=== PATIENT | female | born 1965 | race Caucasian/White ===

== ENCOUNTER 2023-07-03 06:37 | Outpatient (OUT) | payer BC, SELFPAY ==
[2023-07-03 07:27] LABS: Basophils Percent Auto 0.6 % (0.2-2.0); Eosinophils Absolute Auto 0.2 10^3/uL (0.0-0.7); Eosinophils Percent Auto 2.7 % (0.9-7.0); Hematocrit 38.5 % (36.0-48.0); Hemoglobin 12.2 g/dL (12.0-16.0); Immature Granulocytes Abs Auto 0.02 10^3/uL (0.00-0.03); Immature Granulocytes Pct Auto 0.3 % (0.0-0.5); Lymphocytes Absolute Auto 2.2 10^3/uL (1.2-3.8); Lymphocytes Percent Auto 30.6 % (20.5-60.0); Mean Corpuscular HGB Conc 31.7 g/dL (29.9-35.2); Mean Corpuscular Hemoglobin 29.3 pg (26.7-34.0); Mean Corpuscular Volume 92.5 fL (81.0-99.0); Monocytes Absolute Auto 0.8 10^3/uL (0.3-0.8); Monocytes Percent Auto 11.1 % (1.7-12.0); Neutrophils Absolute Auto 3.9 10^3/uL (1.4-6.5); Neutrophils Percent Auto 54.7 % (43.0-75.0); Platelet Count 338 10^3/uL (150-450); Red Blood Count 4.16 10^6/uL (4.20-5.40); Red Cell Distribution Width 14.6 % (11.0-15.0); White Blood Count 7.1 10^3/uL (4.0-11.0)
[2023-07-03 07:38] LABS: Estimated Average Glucose 117 mg/dL; Glycohemoglobin A1C 5.7 % (4.5-6.2)
[2023-07-03 11:40] LABS: Anion Gap 14.5; BUN Creatinine Ratio 25.7; Calcium 8.9 mg/dL (8.5-10.1); Carbon Dioxide 26.6 mmol/L (21.0-32.0); Chloride 103 mmol/L (98-107); Estimated GFR (African America >60 (>=60); Estimated GFR (Non-African Ame >60 (>=60); Glucose 91 mg/dL (74-106); Potassium 4.1 mmol/L (3.5-5.1); Sodium 140 mmol/L (136-145)
[2023-07-03 11:41] LABS: Aspartate Amino Transferase 18 U/L (15-37); Bilirubin Total 0.3 mg/dL (0.2-1.0)
[2023-07-03 11:42] LABS: Alanine Aminotransferase 27 U/L (14-59); Albumin Globulin Ratio 1.1; Albumin Level 3.8 g/dL (3.4-5.0); Alkaline Phosphatase 66 U/L (46-116); Chol HDL Ratio 2.8; Cholesterol 175 mg/dL (<=200); Globulin 3.4 g/dL; HDL Cholesterol 62 mg/dL (40-60); Total Protein 7.2 g/dL (6.4-8.2); Triglycerides 102 mg/dL (<=150); VLDL CHOLESTEROL 20.4 mg/dL
[2023-07-03 11:43] LABS: Thyroid Stimulating Hormone 0.202 uIU/mL (0.358-3.740)
[2023-07-03 15:52] LABS: Free T4 1.09 ng/dL (0.76-1.46)
[2023-07-04 04:07] LABS: Thyroid Peroxidase (TPO) Ab 9 IU/mL (0-34)
[2023-07-05 16:09] LABS: Thyroglobulin Antibody <1.0 IU/mL (0.0-0.9)
== END 2023-07-03 06:38 | disposition home or self-care (01) ==
LOC: LAB 06:46
PROVIDERS: PCP Family Medicine; Visit Provider Family Medicine
DX: Z00.00 Encounter for general adult medical examination without abnormal findings (principal); E03.9 Hypothyroidism, unspecified
CPT/HCPCS: 36415; 80053; 80061; 83036; 84439; 84443; 85025; 86376; 86800

== ENCOUNTER 2023-11-12 07:55 | Outpatient (OUT) | payer BC, SELFPAY ==
--- NOTE | 2023-11-12 07:58 | US_ITS ---
[address] [address] Patient Name: DANA MCGARRY MRN: [id number] date: 1965 Sex: F Assigned Patient Location: US Current Patient Location: US Accession/Order Number: [id number] Exam Date: 11/12/2023 08:00 Report Date: 11/12/2023 09:05 At the request of: NANDINI CASTILLO Procedure: US thyroid EXAMINATION: US thyroid HISTORY: multinodular goiter E04.2 COMPARISON: 11/16/2022 TECHNIQUE: Sonographic images of the thyroid gland were obtained. FINDINGS: The right thyroid lobe measures 4.0 x 1.9 x 1.7 cm. Diffuse increase echotexture with scattered nodules The thyroid isthmus measures 2.4 mm. No focal nodule The left thyroid lobe measures 4.1 x 1.5 x 1.3 cm. Heterogeneous echotexture with scattered nodules 2 focal nodules over 1 cm: Nodule 1: Right thyroid lobe. 2.2 x 1.2 x 1.7 cm. Mixed solid and cystic, hypoechoic, wide, smooth margins, no calcifications. TR 3 Nodule 2: Left thyroid lobe. 1.4 x 0.7 x 0.7 cm. Solid, hypoechoic, wide, smooth margins, no calcifications. TR 4 US/US thyroid IMPRESSION: Stable multinodular thyroid gland TI-RADS: The [employer] TI-RADS committee's white paper recommendations for thyroid lesions classified as TR4 (moderately suspicious) are listed below: > 1.0 cm. Follow-up ultrasound in 1, 2, 3, and 5 years. > 1.5 cm. FNA. J. Am Maeve Radiol 2017;14:[id number]. Electronically authenticated by: ELDON MUKHERJEE Date: 11/12/2023 09:05
== END 2023-11-12 07:56 | disposition home or self-care (01) ==
LOC: US 07:55
PROVIDERS: PCP Family Medicine; Visit Provider Otolaryngology
DX: E04.2 Nontoxic multinodular goiter (principal)
CPT/HCPCS: 76536

== ENCOUNTER 2024-09-10 15:53 | Emergency (ER) | payer BC, SELFPAY ==
[2024-09-10 16:00] VITALS: BP 121/74; PULSE 65; TEMP 36.5; O2SAT 97; BMI 23.9
--- NOTE | 2024-09-10 16:07 | XR_ITS ---
The [address] [address] Patient Name: DANA MCGARRY MRN: [id number] date: 1965 Sex: F Assigned Patient Location: ER Current Patient Location: ED.MAIN Accession/Order Number: [id number] Exam Date: 09/10/2024 16:15 Report Date: 09/10/2024 16:59 At the request of: GABRIELA LEAL Procedure: XR ankle LT min 3V EXAM: XR ankle LT min 3V HISTORY: left ankle sprain COMPARISON: None. TECHNIQUE: 3 views of the left ankle were obtained. FINDINGS: A small fracture fragment is seen at the tip of the lateral malleolus. This may arise from the lateral aspect of the talus and the has the appearance of the old injury. No acute fracture or dislocation is identified. The joint spaces and mortise are intact. No osteochondral injury is identified. Soft tissue swelling laterally is noted. XR/XR ankle LT min 3V IMPRESSION: The small fracture fragment between the tip of the lateral malleolus and the lateral talus appears remote in nature. There is no clear evidence of an acute fracture or dislocation. The joint spaces are intact. Soft tissue swelling laterally is noted. Direct comparison with a previous study may be helpful in determining the chronicity of these findings. Electronically authenticated by: KIRBY WEST Date: 09/10/2024 16:59
--- NOTE | 2024-09-10 16:08 | ED_ITS ---
HPI HPI - Extremity Injury (Lower) General Chief Complaint: Extremity Injury, Lower Stated Complaint: LOWER EXTREMITY PAIN, ANKLE Time Seen by Provider: 09/10/24 15:55 Source: patient Mode of arrival: walk-in Limitations: no limitations History of Present Illness HPI Narrative: Patient is a 59-year-old female presents to the emergency department for evaluation of a left ankle injury that occurred approximately 5 hours ago. She took a step out of the tub and inverted her left ankle. She complains of pain over the left medial malleolus. She denies any other associated injuries. She reports significant pain with ambulating but is able to bear weight. No medications prior to arrival. She states she had a growth plate fracture when she was in high school that was realigned during surgery, no hardware in the ankle. Related Data Home Medications ?Medication ?Instructions ?Recorded ?Confirmed amlodipine 5 mg tablet mg 09/10/24 carvedilol 25 mg tablet 25 mg PO Q12H 09/10/24 09/10/24 diclofenac sodium 75 mg mg PO 09/10/24 tablet,delayed release rosuvastatin 20 mg tablet (Crestor) 20 mg PO DAILY 09/10/24 09/10/24 spironolactone 25 mg tablet mg 09/10/24 trazodone 50 mg tablet mg 09/10/24 valsartan 160 mg tablet mg 09/10/24 Previous Rx's ?Medication ?Instructions ?Recorded hydrocodone 5 mg-acetaminophen 325 1 tab PO Q6H PRN pain 3 days #12 09/10/24 mg tablet tabs Allergies Allergy/AdvReac Type Severity Reaction Status Date / Time No Known Drug Allergies Allergy Verified 09/10/24 16:00 Opioid HPI Opioid Management Most Recent Pain and Opioid Data: Last Pain Scale 6 09/10/24 16:52 09/10/24 Last JAN Pain Assessment 09/10/24 16:52 Review of Systems ROS Constitutional Denies: fever or chills Ears, nose, mouth, and throat Denies: throat pain or nasal congestion Respiratory Denies: shortness of breath Gastrointestinal Denies: nausea or vomiting Musculoskeletal Denies: back pain Integumentary/Breast Denies: rash Neurological Denies: numbness in extremities or weakness in extremities Hematologic/Lymphatic Denies: easy bruising or easy bleeding PFSH PFSH Social History Little interest or pleasure in doing things: not at all Feeling down, depressed, or hopeless: not at all Exam Narrative Exam Narrative: Gen.: Awake, alert, in no distress Head: Normocephalic, atraumatic ENT: Moist mucous membranes Respiratory: No respiratory distress Extremities: Moves extremities equally, tenderness and swelling of the left lateral malleolus. Diffusely tender to palpation. Normal flexion extension of the toes of the left foot. No bony tenderness of the left fifth metatarsal or midfoot. 2+ left DP pulse. Minimal tenderness of the left medial malleolus, no anterior tibial tenderness Psych: Normal mood and affect Neuro: No focal neuro deficit Skin: Warm, dry, intact Constitutional Vital Signs, click to edit/add: Last Vital Signs Temp 97.7 F 09/10/24 16:00 Pulse 65 09/10/24 16:00 Resp 18 09/10/24 16:00 BP 121/74 09/10/24 16:00 Pulse Ox 97 09/10/24 16:00 O2 Del Method Room Air 09/10/24 16:00 Course Vital Signs Vital signs: Vital Signs Temperature 97.7 F 09/10/24 16:00 Pulse Rate 65 09/10/24 16:00 Respiratory Rate 18 09/10/24 16:00 Blood Pressure 121/74 09/10/24 16:00 Pulse Oximetry 97 09/10/24 16:00 Oxygen Delivery Method Room Air 09/10/24 16:00 Temperature 97.7 F 09/10/24 16:00 Pulse Rate 65 09/10/24 16:00 Respiratory Rate 18 09/10/24 16:00 Blood Pressure 121/74 09/10/24 16:00 Pulse Oximetry 97 09/10/24 16:00 Oxygen Delivery Method Room Air 09/10/24 16:00 MDM - Extremity Injury (Lower) MDM Narrative Medical decision making narrative: X-rays of the left ankle with no acute fracture or dislocation. Patient was found to have an old, remote appearing avulsion fracture off the left lateral malleolus. She is placed in an Axel wrap, Aircast and given crutches for comfort. She remains neurovascularly intact. Rest, ice, elevate. Short course of analgesics given for home. Work note provided. Return to the ER if symptoms change or worsen SUPERVISED APC VISIT, PHYSICIAN ATTESTATION: Based on the medical record the care appears appropriate. ? Medical Records Attestation: I reviewed the patient's medical records. Imaging Data XR ankle: Attestation: I have reviewed the pertinent imaging results. Radiologist's impression: ITS Impressions Ankle X-Ray 09/10/24 16:07 IMPRESSION: The small fracture fragment between the tip of the lateral malleolus and the lateral talus appears remote in nature. There is no clear evidence of an acute fracture or dislocation. The joint spaces are intact. Soft tissue swelling laterally is noted. Direct comparison with a previous study may be helpful in determining the chronicity of these findings. Electronically authenticated by: KIRBY WEST Date: 09/10/2024 16:59 Discharge Plan Discharge Chief Complaint: Extremity Injury, Lower Clinical Impression: Left ankle sprain Patient Disposition: Home, Self-Care Time of Disposition Decision: 17:15 Condition: Good Prescriptions / Home Meds: New hydrocodone-acetaminophen 5-325 mg tablet 1 tab PO Q6H PRN (Reason: pain) 3 Days Qty: 12 0RF Rx Instructions: DX: M25.572 No Action carvedilol 25 mg tablet 25 mg PO Q12H Rx Instructions: must administer with a meal/food rosuvastatin [Crestor] 20 mg tablet 20 mg PO DAILY trazodone 50 mg tablet amlodipine 5 mg tablet spironolactone 25 mg tablet diclofenac sodium 75 mg tablet,delayed release (DR/EC) PO valsartan 160 mg tablet Print Language: Latvian Instructions: Ankle Sprain (ED) Referrals: Ines García MD [Primary Care Provider] - 1 week
--- OUTSIDE RECORDS SUMMARY | 2024-09-10 16:13 | XMS_ITS | CCD ---
Author Organization [facility] Care Team Providers Care Senior Software Manager Name Role Phone AWILDA, DR JORDAN Colbert Consulting Unavaila ble DEBENEDETTI, DR JORDAN Colbert Admitting Unavaila ble DEBENEDETTI, DR JORDAN Colbert Attending Unavaila ble REQUEST, NONE LISTED Primary Care Unavaila ble DEBENEDETTI, DR JORDAN Colbert Consulting Unavaila ble DEBENEDETTI, DR JORDAN Colbert Admitting Unavaila ble DEBENEDETTI, DR JORDAN Colbert Attending Unavaila ble REQUEST, NONE LISTED Primary Care Unavaila ble REQUEST, NONE LISTED Primary Care Unavaila ble TIMMIS, NANDINI Admitting Unavailable TIMMIS, NANDINI Attending Unavailable TIMMIS, NANDINI Consulting Unavailable ZiebMike burton Consulting Unavailable DEBENEDETTI, DR JORDAN Colbert Consulting Unavaila ble REQUEST, NONE LISTED Primary Care Unavaila ble DEBENEDETTI, DR JORDAN Colbert Attending Unavaila ble DEBENEDETTI, DR JORDAN Colbert Admitting Unavaila ble REQUEST, NONE LISTED Primary Care Unavaila ble TIMMIS, NANDINI Admitting Unavailable TIMMIS, NANDINI Attending Unavailable TIMMIS, NANDINI Consulting Unavailable Mike Gonzalez Consulting Unavailable Ines Mckeon Unavailable Brooke Cha Unavailable Ines Mckeon MD Primary Care Provider NANDINI CASTILLO Attending Unavailable SHAI HENDRICKS Attending Unavailable SHAI HENDRICKS Referring Unavailable INES MCKEON Primary Care Unavailable ELISA MINOR Attending Unavailable INES MCKEON Referring Unavailable INES MCKEON Primary Care Unavailable ELISA MINOR Referring Unavailable INES MCKEON Primary Care Unavailable ELISA MINOR Attending Unavailable ELISA MINOR Referring Unavailable INES MCKEON Primary Care Unavailable ELISA MINOR Attending Unavailable ELISA MINOR Referring Unavailable INES MCKEON Primary Care Unavailable ELISA MINOR Attending Unavailable ELISA MINOR Referring Unavailable INES MCKEON Primary Care Unavailable ROJAS VALENCIA Attending Unavailable INES MCKEON Referring Unavailable INES MCKEON Primary Care Unavailable SHAI HENDRICKS Attending Unavailable INES MCKEON Referring Unavailable INES MCKEON Primary Care Unavailable Allergies Allergy Classification Reported Allergen(s) Allergy Type Date of Onset Reaction(s) Facility (1 source) bee venom Drug allergy (disorder) 1 [facility] (6 sources) NIFEdipine; Translations: [NIFEDIPINE] Drug Allergy 1 [facility] (6 sources) Bee Venom Protein (Honey Bee); Translations: [BEE VENOM PROTEIN (HONEY BEE)] Propensity to adverse reactions to drug 9 [facility] Medications Current Medications Medication Drug Class(es) Dates Sig (Normalized) Sig (Original) acetaminophen 325 mg / HYDROcodone bitartrate 5 mg oral tablet (3 sources) Opioid Agonist Start: 06-27-2023 take 1 tablet by mouth every six hours HYDROcodone-Acet aminophen 5-325 MG 1 tablet as needed Orally every 6 hrs for 7 days Jun, Active amLODIPine 5 mg oral tablet (4 sources) Dihydropyridine Calcium Channel Sapphire Start: 08-05-2024 take 5 mg by mouth once daily Amlodipine Active 5 MG PO Daily August 05, 2024 12:00am Start: 04-01-2024 take 1 tablet by alex th in the morning amLODIPine (NORVASC) 10 mg tablet Take 1 tablet (10 mg total) by mouth in the morning. 90 tablet 3 04/01/2024 Active Start: 12-04-2023 take 1 tablet by alex th in the morning amLODIPine (NORVASC) 5 mg tablet Take 1 tablet (5 mg total) by mouth in the morning. 30 tablet 11 12/04/2023 Active amoxicillin 875 mg / clavulanate 125 mg oral tablet (2 sources) Penicillin-class Antibacterial Start: 06-07-2023 take 1 tablet by mouth every twelve hours Amoxicillin-Pot Clavulanate 875-125 MG 1 tablet Orally every 12 hrs for 10 days May, Active Ascorbic Acid (5 sources) Vitamin C ascorbic acid (VITAMIN C ORAL) Take by mouth daily. Active ascorbic acid (V ITAMIN C ORAL) Take by mouth daily. 0 Active carvedilol 25 mg oral tablet (15 sources) alpha-Adrenergic Sapphire, beta-Adrenergic Sapphire Start: 11-18-2023 take 2 tablets by mouth in the morning, then take 2 tablets by mouth at mealtime carvediloL (COREG) 25 mg tablet Indications: Essential hypertension Take 2 tablets (50 mg total) by mouth in the morning and 2 tablets (50 mg total) in the evening. Take with meals. 120 tablet 3 11/18/2023 Active take 1 tablet by alex th every twenty-four hours Carvedilol 25 MG 1 tablet Oral once a da y for 90 days Active take 1 tablet by mouth twice harper ly Carvedilol 12.5 MG TAKE 1 TABLET TWICE A DAY Oral for 90 Days Active cholecalciferol, vitamin D3, (VITAMIN D3 ORAL) (5 sources) cholecalciferol, vitamin D3, (VITAMIN D3 ORAL) Take by mouth daily. Active cholecalciferol, vitamin D3, (VITAMIN D3 ORAL) Take by mouth daily. 0 Active diclofenac sodium 75 mg delayed release oral tablet (16 sources) Nonsteroidal Anti-inflammatory Drug Start: 08-05-2024 End: 08-05-2024 take 1 tablet by mouth once daily diclofenac (VOLTAREN) 75 mg EC tablet Take 1 tablet (75 mg total) by mouth nightly. 08/05/2024 Active End: 12-04-2023 take 1 tablet by mouth in the morning diclofenac (VOLTAREN) 75 mg EC tablet Take 1 tablet (75 mg total) by mouth in the morning. 0 12/04/2023 Discontinued ergocalciferol 1.25 mg oral capsule (9 sources) Provitamin D2 Compound take 1 capsule by mouth once Vitamin D (Ergocalciferol) 52303 UNIT 1 capsule Orally Active hyoscyamine sulfate 0.125 mg oral tablet (14 sources) Start: 06-07-20 take 1 tablet by mouth every eight hours Hyoscyamine Sulfate 0.125 MG 1 tablet as needed Orally Three times a day for 10 days May, Active take 1 tablet by alex th every four hours as needed for pain hyoscyamine (ANASPAZ,LEVSIN) 0.125 mg ta blet Take 1 tablet (0.125 mg total) by mouth every 4 (four) hours as needed for cramping. Active levothyroxine sodium 0.05 mg oral tablet (18 sources) l-Thyroxine Start: 05-23-2019 End: 08-04-2024 take 1 tablet by mouth once daily levothyroxine (SYNTHROID, LEVOTHROID) 50 MCG tablet Take 1 tablet (50 mcg total) by mouth nightly. 11 05/23/2019 Active take 1 tablet by alex th once daily in the morning Levothyroxine Sodium 50 MCG 1 tablet in the morning on an empty stomach Orally Once a day for 90 days Active loperamide hydrochloride 2 mg oral tablet (5 sources) Opioid Agonist take 1 tablet by mouth four times daily as needed for diarrhea loperamide (IMODIUM A-D) 2 mg tablet Take 1 tablet (2 mg total) by mouth 4 (four) times a day as needed for diarrhea. Active melatonin 5 mg oral tablet (5 sources) take 2 tablets by mouth once daily melatonin (CIRCADIN) 5 mg tablet Take 2 tablets (10 mg total) by mouth nightly. Active Multivitamin (Daily Multi-Vitamin) tablet (1 source) Start: 4 take 1 tablet by mouth once daily Multivitamin (Daily Multi-Vitamin) tablet Active 1 TAB PO Daily August 05, 2024 12:00am MULTIVITAMIN ORAL (5 sources) MULTIVITAMIN ORA L Take by mouth daily. Active MULTIVITAMIN ORA L Take by mouth daily. 0 Active Multivitamin preparation (1 source) Multi Vitamin Ac tive mupirocin 0.02 mg/mg topical ointment (9 sources) RNA Synthetase Inhibitor Antibacterial Start: 06-07-20 23 Mupirocin 2 % 1 application Externally Twice a day for 5 days May, Active rosuvastatin calcium 20 mg oral tablet (16 sources) HMG-CoA Reductase Inhibitor Start: 04-09-20 23 take 1 tablet by mouth once daily Rosuvastatin Active 1 TAB PO Daily August 05, 2024 12:00am FreeTextSi tablet Orally Once a day; Note: Source Status: Taking; Refills: 3; Qty: 90 Tablet; Provider: Raquel Layton spironolactone 25 mg oral tablet (17 sources) Aldosterone Antagonist Start: 08-05-20 24 take 1 tablet by mouth once daily Spironolactone Active 25 MG PO Daily August 05, 2024 12:00am FreeTextSi tablet once a day; Note: Source Status: Takingunsure of dose; Provider: Raquel Chacon ( ) Start: 12-04-2023 take 1 tablet by alex th in the morning spironolactone (ALDACTONE) 50 mg tablet Indications: Essential hypertension Take 1 tablet (50 mg total) by mouth in the morning. 30 tablet 11 12/04/2023 Active Start: 07-24-2023 End: 12-04-2023 take 1 tablet by mouth in the morning spironolactone (ALDACTONE) 25 mg tablet Indications: Essential hypertension Take 1 tablet (25 mg total) by mouth in the morning. 90 tablet 3 07/24/2023 12/04/2023 Discontinued (Reorder) Spironolactone u nsure of dose Active traZODone hydrochloride 50 mg oral tablet (2 sources) Serotonin Reuptake Inhibitor Start: 08-05-2024 take 1 tablet by mouth once daily traZODone (DESYREL) 50 mg tablet Take 1 tablet (50 mg total) by mouth nightly. 08/05/2024 Active valsartan 40 mg oral tablet (3 sources) Angiotensin 2 Receptor Sapphire Start: 08-05-2024 take 40 mg by mouth twice daily Valsartan Active 40 MG PO Twice daily August 05, 2024 12:00am Start: 04-01-2024 take 1 tablet by alex th in the morning valsartan (DIOVAN) 160 mg tablet Take 1 tablet (160 mg total) by mouth in the morning. 90 tablet 3 04/01/2024 Active vitamin E acetate (VITAMIN E ORAL) (5 sources) vitamin E acetat e (VITAMIN E ORAL) Take by mouth daily. Active vitamin E acetat e (VITAMIN E ORAL) Take by mouth daily. 0 Active Completed/Discontinued Medications Medication Drug Class(es) Dates Sig (Normalized) Sig (Original) ALPRAZolam 0.25 mg oral tablet (5 sources) Benzodiazepine Start: 08-05-2024 End: 08-05-2024 take 1 tablet by mouth twice daily as needed Alprazolam Discontinued 1 TAB PO Twice daily August 05, 2024 12:00am August 05, 2024 9:08am FreeTextSi tablet Orally Twice a day prn; Note: Source Status: Start; Refills: 0; Provider: Raquel Layton Start: 11-28-2023 take 1 tablet by alex th once daily as needed for anxiety ALPRAZolam (XANAX) 0.25 mg tablet Take 1 tablet (0.25 mg total) by mouth nightly as needed for anxiety or sleep. 11/28/2023 Active Start: 11-28-2023 take 1 tablet by alex th twice daily as needed ALPRAZolam 0.25 MG 1 tablet Orally Twice a day prn for 7 days Nov, Active tiZANidine 4 mg oral tablet (9 sources) Central alpha-2 Adrenergic Agonist take 2 tablets by mouth once daily at bedtime as needed tiZANidine HCl 4 mg 2 tablet as needed Orally qhs Not-Taking Problems Active Problems Problem Classification Problem Date Documented Da te Episodic/Chronic Abdominal pain (10 sources) Epigastric pain; Translations: [Epigastric pain] Episodic Anxiety disorders (2 sources) Anxiety; Translations: [Anxiety disorder, unspecified] Chronic Disorders of lipid metabolism (20 sources) Hyperlipidemia; Translations: [Hyperlipidemia, unspecified] Onset: 02-06-2021 02-06-2021 Chronic Diverticulosis and diverticulitis (10 sources) Diverticulosis of sigmoid colon; Translations: [Sigmoid diverticulosis] Chronic Essential hypertension (20 sources) Essential (primary) hypertension; Translations: [Essential hypertension] Onset: 12-08-2019 Chronic Gastrointestinal hemorrhage (10 sources) Rectal hemorrhage; Translations: [Rectal Bleeding] Episodic Heart valve disorders (4 sources) Nonrheumatic aortic (valve) insufficiency; Translations: [Aortic valve disorders] Onset: 09-07-2024 08-31-2024 Chronic Miscellaneous mental health disorders (9 sources) Acute insomnia; Translations: [Adjustment insomnia] Episodic Osteoarthritis (5 sources) Arthritis; Translations: [Unspecified osteoarthritis, unspecified site] Onset: 11-02-2021 11-02-2021 Chronic Other gastrointestinal disorders (10 sources) Irritable bowel syndrome with diarrhea; Translations: [Irritable bowel syndrome with diarrhea] Chronic Other gastrointestinal disorders (1 source) Irritable bowel syndrome with diarrhea Chronic Other gastrointestinal disorders (10 sources) Heartburn; Translations: [HEARTBURN] Episodic Other non-traumatic joint disorders (9 sources) Pain in right hip joint; Translations: [Pain in right hip] Episodic Other screening for suspected conditions (not mental disorders or infectious disease) (2 sources) Thyroid function tests abnormal; Translations: [Abnormal results of thyroid function studies] 01-27-2024 Episodic Other skin disorders (9 sources) Disorder of skin and/or subcutaneous tissue; Translations: [Disorder of the skin and subcutaneous tissue, unspecified] Episodic Other upper respiratory infections (9 sources) Chronic sinusitis; Translations: [Chronic sinusitis, unspecified] Chronic Peripheral and visceral atherosclerosis (2 sources) Peripheral vascular disease, unspecified; Translations: [Peripheral vascular disease, unspecified] Onset: 09-07-2024 09-07-2024 Chronic Residual codes; unclassified (9 sources) Family history of endocrine disorders; Translations: [Family history of other endocrine, nutritional and metabolic diseases] Episodic Residual codes; unclassified (9 sources) Family history of ischemic heart disease; Translations: [Family history of ischemic heart disease and other diseases of the circulatory system] Episodic Residual codes; unclassified (1 source) History of chest pain; Translations: [Personal history of other specified conditions] 08-31-2024 Episodic Residual codes; unclassified (1 source) Personal history of other specified conditions; Translations: [Personal history of other specified conditions] Onset: 09-07-2024 Episodic Skin and subcutaneous tissue infections (1 source) Cellulitis of head [any part, except face] Episodic Spondylosis; intervertebral disc disorders; other back problems (19 sources) Nerve root disorder; Translations: [Radiculopathy, site unspecified] Episodic Thyroid disorders (20 sources) Nontoxic single thyroid nodule; Translations: [Non-toxic multinodular goiter] Onset: 11-11-2020 Chronic Past or Other Problems Problem Classification Problem Date Documented Da te Episodic/Chronic Nonspecific chest pain (1 source) Chest pain, unspecified; Translations: [Chest pain, unspecified] Onset: 03-05-2024 Episodic Residual codes; unclassified (5 sources) Other specified health status; Translations: [Other drug allergy] Onset: 11-02-2021 Resolved: 02-19-2022 02-19-2022 Episodic Unclassified (1 source) PAD (peripheral artery disease) ([facility]) 09-07-2024 Results Test Name Value Interpretation Reference Range Facil ity BASIC METABOLIC PANLon 03-12 Anion gap [Moles/Vol] 9 mmol/L Normal 5-15 [facility] Comment on above: Performed By: #### C ТАТЬЯНА OJEDA, 60981-3 #### [facility] ([id number]) [address], [address] [place] [address] Calcium [Mass/Vol] 9.4 mg/dL Normal 8.5-10.5 [facility] Comment on above: Performed By: #### C ТАТЬЯНА OJEDA, 07211-9 #### [facility] ([id number]) [address], [address] [place] [address] Chloride [Moles/Vol] 106 mmol/L Normal 98-109 [facility] Comment on above: Performed By: #### C ТАТЬЯНА OJEDA, 85656-5 #### [facility] ([id number]) [address], [address] [place] [address] CO2 [Moles/Vol] 28 mmol/L Normal 22-32 [facility] Comment on above: Performed By: #### C ТАТЬЯНА OJEDA, 75114-2 #### [facility] ([id number]) [address], [address] [place] [address] Creatinine [Mass/Vol] 0.65 mg/dL Normal 0.40-1.00 [facility] Comment on above: Result Comment: METH OD TRACEABLE TO IDMS STANDARD Performed By: #### C ТАТЬЯНА OJEDA, 87709-1 #### [facility] ([id number]) [address], [address] [place] [address] eGFR (CKD-EPI) NON-RACE DEPENDENT >90 Normal >59 [facility] Comment on above: Result Comment: Reported eGFR is based on the CKD-EPI 2020 equation that does not use a race coefficient. Performed By: #### C ТАТЬЯНА OJEDA, 56721-4 #### [facility] ([id number]) [address], [address] [place] [address] Glucose [Mass/Vol] 84 mg/dL Normal 65-99 [facility] Comment on above: Performed By: #### ТАТЬЯНА Seaman BCA, 31224-7 #### [facility] ([id number]) [address], [address] [place] [address] Potassium [Moles/Vol] 4.1 mmol/L Normal 3.5-5.0 [facility] Comment on above: Performed By: #### ТАТЬЯНА Seaman BCA, 08127-4 #### [facility] ([id number]) [address], [address] [place] [address] Sodium [Moles/Vol] 143 mmol/L Normal 134-146 [facility] Comment on above: Performed By: #### ТАТЬЯНА Seaman BCA, 88599-8 #### [facility] ([id number]) [address], [address] [place] [address] Urea nitrogen [Mass/Vol] 20 mg/dL Normal 5-23 [facility] Comment on above: Performed By: #### ТАТЬЯНА Seaman BCA, 97820-3 #### [facility] ([id number]) [address], [address] [place] [address] CBC AND AUTO DIFFon 03-12-20 24 ABSOLUTE BASOPHIL 0.1 X10E9/L Normal 0.0-0.2 [facility] Comment on above: Performed By: #### ТАТЬЯНА Seaman BCA, 59694-2 #### [facility] ([id number]) [address], [address] [place] [address] ABSOLUTE NEUTROPHIL 4.0 X10E9/L Normal 1.5-6.6 [facility] Comment on above: Performed By: #### ТАТЬЯНА Seaman BCA, 13660-5 #### [facility] ([id number]) [address] [place] [address] Basophils/100 WBC (Bld) 0.9 % Normal [facility] Comment on above: Performed By: #### ТАТЬЯНА Seaman BCA, 19957-9 #### [facility] ([id number]) [address], [facility] [address] [place] [address] Eosinophils (Bld) [#/Vol] 0.2 10*3/uL Normal 0.0-0.4 [facility] Comment on above: Performed By: #### ТАТЬЯНА Seaman BCA, 26536-0 #### [facility] ([id number]) [address], [facility] [address] [place] [address] Eosinophils/100 WBC (Bld) 2.7 % Normal [facility] Comment on above: Performed By: #### ТАТЬНЯА Seaman BCA, 17516-2 #### [facility] ([id number]) [address], [facility] [address] [place] [address] Erythrocyte distribution width (RBC) [Ratio] 15.8 % High 11.5-15.0 [facility] Comment on above: Performed By: #### ТАТЬЯНА Seaman BCA, 99124-1 #### [facility] ([id number]) [address], [facility] [address] [place] [address] Hematocrit (Bld) [Volume fraction] 37.9 % Normal 35-47 [facility] Comment on above: Performed By: #### ТАТЬЯНА Seaman BCA, 58928-4 #### [facility] ([id number]) [address] [address] [place] [address] Hemoglobin (Bld) [Mass/Vol] 12.6 g/dL Normal 11.7-15.5 [facility] Comment on above: Performed By: #### ТАТЬЯНА Seaman BCA, 97898-0 #### [facility] ([id number]) [address] [address] [place] [address] Lymphocytes (Bld) [#/Vol] 2.2 10*3/uL Normal 1.0-3.5 [facility] Comment on above: Performed By: #### ТАТЬЯНА Seaman BCA, 47342-7 #### [facility] ([id number]) [address] [place] [address] Lymphocytes/100 WBC (Bld) 30.6 % Normal [facility] Comment on above: Performed By: #### ТАТЬЯНА Seaman BCA, 27036-4 #### [facility] ([id number]) [address], [address] [place] [address] MCH (RBC) [Entitic mass] 30.3 pg Normal 27-34 [facility] Comment on above: Performed By: #### ТАТЬЯНА Seaman BCA, 27029-3 #### [facility] ([id number]) [address] [place] [address] MCHC (RBC) [Mass/Vol] 33.3 g/dL Normal 32-36 [facility] Comment on above: Performed By: #### ТАТЬЯНА Seaman BCA, 29124-6 #### [facility] ([id number]) [address] [place] [address] MCV (RBC) [Entitic vol] 91 fL Normal 80-100 [facility] Comment on above: Performed By: #### ТАТЬЯНА Seaman BCA, 92534-9 #### [facility] ([id number]) [address] [place] [address] Monocytes (Bld) [#/Vol] 0.8 10*3/uL Normal 0-0.9 [facility] Comment on above: Performed By: #### ТАТЬЯНА Seaman BCA, 44782-9 #### [facility] ([id number]) [address], [address] [place] [address] Monocytes/100 WBC (Bld) 10.4 % Normal [facility] Comment on above: Performed By: #### ТАТЬЯНА Seaman BCA, 69168-1 #### [facility] ([id number]) [address], [address] [place] [address] Neutrophils/100 WBC (Bld) 55.4 % Normal [facility] Comment on above: Performed By: #### ТАТЬЯНА Seaman BCA, 51205-3 #### [facility] ([id number]) [address], [address] [place] [address] Platelet mean volume (Bld) [Entitic vol] 9.1 fL Normal 7-12 [facility] Comment on above: Performed By: #### ТАТЬЯНА Seaman BCA, 14228-4 #### [facility] ([id number]) [address], [address] [place] [address] Platelets (Bld) [#/Vol] 361 10*3/uL Normal 150-450 [facility] Comment on above: Performed By: #### ТАТЬЯНА Seaman BCA, 72532-2 #### [facility] ([id number]) [address], [address] [place] [address] RBC COUNT 4.17 X10E12/L Normal 3.80-5.20 [facility] Comment on above: Performed By: #### ТАТЬЯНА Seaman BCA, 03700-9 #### [facility] ([id number]) [address], [facility] [address] [place] [address] WBC (Bld) [#/Vol] 7.3 10*3/uL Normal 4.0-11.0 [facility] Comment on above: Performed By: #### ТАТЬЯНА Seaman BCA, 91503-2 #### [facility] ([id number]) [address], [address] [place] [address] Lipid 1996 panelon 4 Cholesterol [Mass/Vol] 154 mg/dL Normal 150-200 [facility] Comment on above: Performed By: #### ТАТЬЯНА Seaman BCA, 89278-0 #### [facility] ([id number]) [address], [address] [place] [address] Cholesterol in HDL [Mass/Vol] 45 mg/dL Normal >39 [facility] Comment on above: Result Comment: HDL <40 mg/dL - High Risk HDL > or = 40mg/dL- Desirable HDL >60 mg/dL - Negative Risk Performed By: #### ТАТЬЯНА Seaman BCA, 28294-9 #### [facility] ([id number]) [address], [address] [place] [address] Cholesterol in LDL [Mass/Vol] 87 mg/dL Normal <130 [facility] Comment on above: Result Comment: LDL <100 mg/dL - Desirable LDL >160 mg/dL - High Risk Performed By: #### ТАТЬЯНА Seaman BCA, 29150-4 #### [facility] ([id number]) [address], [address] [place] [address] Cholesterol in VLDL [Mass/Vol] 22 mg/dL Normal 0-30 [facility] Comment on above: Performed By: #### ТАТЬЯНА Seaman BCA, 27154-6 #### [facility] ([id number]) [address], [address] [place] [address] CHOLESTEROL:HDL 3.4 Normal 1.0-5.0 [facility] Comment on above: Performed By: #### ТАТЬЯНА Seaman BCA, 45745-5 #### [facility] ([id number]) [address], [address] [place] [address] Triglyceride [Mass/Vol] 112 mg/dL Normal 27-150 [facility] Comment on above: Performed By: #### ТАТЬЯНА Seaman BCA, 35614-3 #### [facility] ([id number]) [address], [address] [place] [address] US THYROIDon 11-16-2022 US THYROID EXAMINATION: US THYROID HISTORY: Non-toxic uninodular goiter COMPARISON: Ultrasound thyroid 05/30/2022, 10/03/2021 FINDINGS: RIGHT LOBE: Heterogeneous echotexture. Contains a 23 mm partially cystic nodule versus colloid cysts, TR2. Stable appearance of 2 separate 5 mm TR 4 nodules. Lobe size: 5.3 x 2.0 x 1.9 cm LEFT LOBE: Heterogeneous echotexture. Stable appearance of a 13 mm, 5 mm, and 5 mm TR4 nodules respectively. Lobe size: 3.6 x 1.3 x 1.5 cm ISTHMUS: Heterogeneous. Normal thickness. Thickness: 2 mm IMPRESSION: 1. Grossly stable multinodular thyroid gland. No overtly suspicious nodules or change toward biopsy. TR4 (moderately suspicious): If > 1.0 cm Follow-up ultrasound in 1, 2, 3, and 5 years. If > 1.5 cm fine needle aspiration (FNA). Electronically authenticated by: MIKE GONZALEZ Date: 2022-11-16 11:23 Normal [facility] PROF CHEM 8 (BAS METB)on Anion gap [Moles/Vol] 13.7 mmol/L Normal [facility] Comment on above: Performed By: #### B MP #### [facility] [address] [place] [address] Dr. Maritza Bush Calcium [Mass/Vol] 9.1 mg/dL Normal 8.5-10.1 [facility] Comment on above: Performed By: #### B MP #### [facility] [address] [address] [address] Maritza Bush Chloride [Moles/Vol] 106 mmol/L Normal 98-107 [facility] Comment on above: Performed By: #### B MP #### [facility] [address] [address] [address] Maritza Bush CO2 [Moles/Vol] 24.6 mmol/L Normal 21.0-32.0 [facility] Comment on above: Performed By: #### B MP #### [facility] [address] [address] [address] Maritza Bush Creatinine [Mass/Vol] 0.90 mg/dL Normal 0.55-1.02 [facility] Comment on above: Performed By: #### B MP #### [facility] [address] [address] [address] Maritza Bush EGFR-AF AFGHAN >60 Normal >=60 [facility] Comment on above: Performed By: #### B MP #### [facility] [address] [address] [address] Martiza Bush EGFR-NON AF AFGHAN >60 Normal >=60 [facility] Comment on above: Performed By: #### B MP #### [facility] [address] [address] [address] Maritza Bush Glucose [Mass/Vol] 104 mg/dL Normal 74-106 [facility] Comment on above: Performed By: #### B MP #### [facility] [address] [place] [address] Dr. Maritza Bush Potassium [Moles/Vol] 4.3 mmol/L Normal 3.5-5.1 [facility] Comment on above: Performed By: #### B MP #### [facility] [address] [address] [address] Maritza Bush Sodium [Moles/Vol] 140 mmol/L Normal 136-145 [facility] Comment on above: Performed By: #### B MP #### [facility] [address] [address] [address] Maritza Bush Urea nitrogen [Mass/Vol] 21.0 mg/dL Critically high 7.0-18.0 [facility] Comment on above: Performed By: #### B MP #### [facility] [address] [address] [address] Maritza Bush Urea nitrogen/Creatinine [Mass ratio] 23.3 mg/mg Normal [facility] Comment on above: Performed By: #### B MP #### [facility] [id number] Maritza Bush US THYROIDon 05-18-2022 US THYROID EXAMINATION: US THYROID HISTORY: Non-toxic uninodular goiter COMPARISON: Ultrasound thyroid 10/03/2021 FINDINGS: RIGHT LOBE: Stable 2.0 x 1.7 x 1.1 cm TR 3 nodule within mid pole. Several stable 5 mm or less in size TR 4 nodules scattered within lobe. Lobe size: 4.8 x 1.7 x 1.8 cm LEFT LOBE: Contains a 1.3 x 1.0 x 0.6 cm TR 5 nodule. Several stable 5 mm or less in size TR 4 nodules within lobe. Lobe size: 4.3 x 1.1 x 1.4 cm. ISTHMUS: Heterogeneous echotexture. Thickness: 3 mm IMPRESSION: 1. Left lobe 1.3 cm TR 5 nodule. Tissue sampling should be considered. 2. Otherwise stable thyroid gland. TR 5: The [employer] TI-RADS committee's white paper recommendations for thyroid lesions classified as TR5 (highly suspicious) are listed below: > 0.5 cm. Annual ultrasound follow-up for up to 5 years. > 1.0 cm. FNA. J. Am Maeve Radiol 2017;14:587-595. TR 4: The [employer] TI-RADS committee's white paper recommendations for thyroid lesions classified as TR4 (moderately suspicious) are listed below: > 1.0 cm. Follow-up ultrasound in 1, 2, 3, and 5 years. > 1.5 cm. FNA. J. Am Maeve Radiol 2017;14:587-595. Electronically authenticated by: MIKE GONZALEZ Date: 2022-05-18 16:38 Normal [facility] PROF CHEM 8 (BAS METB)on Anion gap [Moles/Vol] 12.5 mmol/L Normal [facility] Comment on above: Performed By: #### B MP #### [facility] [address] [place], [place] [address] Dr. Maritza Bush Calcium [Mass/Vol] 9.0 mg/dL Normal 8.5-10.1 [facility] Comment on above: Performed By: #### B MP #### [facility] [address] [place], [place] [address] Dr. Maritza Bush Chloride [Moles/Vol] 109 mmol/L Critically high 98-107 [facility] Comment on above: Performed By: #### B MP #### [facility] [address] [address] [address] Maritza Bush CO2 [Moles/Vol] 27.4 mmol/L Normal 21.0-32.0 [facility] Comment on above: Performed By: #### B MP #### [facility] [address] [address] [address] Maritza Bush Creatinine [Mass/Vol] 0.69 mg/dL Normal 0.55-1.02 [facility] Comment on above: Performed By: #### B MP #### [facility] [address] [address] [address] Maritza Bush EGFR-AF AFGHAN >60 Normal >=60 [facility] Comment on above: Performed By: #### B MP #### [facility] [address] [place] [address] Dr. Maritza Bush EGFR-NON AF AFGHAN >60 Normal >=60 [facility] Comment on above: Performed By: #### B MP #### [facility] [address] [address] [address] Maritza Bush Glucose [Mass/Vol] 111 mg/dL Critically high 74-106 [facility] Comment on above: Performed By: #### B MP #### [facility] [address] [address] [address] Maritza Bush Potassium [Moles/Vol] 3.9 mmol/L Normal 3.5-5.1 [facility] Comment on above: Performed By: #### B MP #### [facility] [address] [address] [address] Maritza Bush Sodium [Moles/Vol] 145 mmol/L Normal 136-145 [facility] Comment on above: Performed By: #### B MP #### [facility] [address] [place] [address] Dr. Maritza Bush Urea nitrogen [Mass/Vol] 20.0 mg/dL Critically high 7.0-18.0 [facility] Comment on above: Performed By: #### B MP #### [facility] [address] [address] [address] Maritza Bush Urea nitrogen/Creatinine [Mass ratio] 29.0 mg/mg Normal [facility] Comment on above: Performed By: #### B MP #### [facility] [address] [place] [address] Dr. Maritza Bush PROF CHEM 8 (BAS METB)on Anion gap [Moles/Vol] 13.0 mmol/L Normal [facility] Comment on above: Performed By: #### B MP #### [facility] [address] [place] [address] Dr. Maritza Bush Calcium [Mass/Vol] 9.1 mg/dL Normal 8.5-10.1 [facility] Comment on above: Performed By: #### B MP #### [facility] [address] [place] [address] Dr. Maritza Bush Chloride [Moles/Vol] 104 mmol/L Normal 98-107 [facility] Comment on above: Performed By: #### B MP #### [facility] [address] [place] [address] Dr. Maritza Bush CO2 [Moles/Vol] 27.9 mmol/L Normal 22.0-30.0 [facility] Comment on above: Performed By: #### B MP #### [facility] [address] [place] [address] Dr. Maritza Bush Creatinine [Mass/Vol] 0.75 mg/dL Normal 0.52-1.04 [facility] Comment on above: Performed By: #### B MP #### [facility] [address] [place] [address] Dr. Maritza Bush EGFR-AF AFGHAN >60 Normal >=60 [facility] Comment on above: Performed By: #### B MP #### [facility] [address] [place] [address] Dr. Maritza Bush EGFR-NON AF AFGHAN >60 Normal >=60 [facility] Comment on above: Performed By: #### B MP #### [facility] [address] [place] [address] Dr. Maritza Bush Glucose [Mass/Vol] 94 mg/dL Normal 74-106 [facility] Comment on above: Performed By: #### B MP #### [facility] [address] [address] [address] Maritza Bush Potassium [Moles/Vol] 3.9 mmol/L Normal 3.4-5.0 [facility] Comment on above: Performed By: #### B MP #### [facility] [address] [address] [address] Maritza Bush Sodium [Moles/Vol] 141 mmol/L Normal 137-145 [facility] Comment on above: Performed By: #### B MP #### [facility] [address] [address] [address] Maritza Bush Urea nitrogen [Mass/Vol] 23.0 mg/dL Critically high 7.0-18.0 [facility] Comment on above: Performed By: #### B MP #### [facility] [address] [address] [address] Maritza Bush Urea nitrogen/Creatinine [Mass ratio] 30.7 mg/mg Normal [facility] Comment on above: Performed By: #### B MP #### [facility] [address] [address] [address] Maritza Bush Vital Signs Date Time Vital Sign Value Performing Clinician Facility 09-07-2024 07:58-0400 Body height 160 cm Rojas Valencia MD Work Phone: [facility] 09-07-2024 07:58-0400 Body mass index (BMI) [Ratio] 24.09 kg/m2 Rojas Valencia MD Work Phone: [facility] 09-07-2024 07:58-0400 Body weight 61.69 kg Rojas Valencia MD Work Phone: [facility] 09-07-2024 07:58-0400 Diastolic blood pressure 86 mm[Hg] Rojas Valencia MD Work Phone: [facility] 09-07-2024 07:58-0400 Heart rate 72 /min Rojas Valencia MD Work Phone: [facility] 09-07-2024 07:58-0400 Systolic blood pressure 130 mm[Hg] Rojas Valencia MD Work Phone: [facility] 08-05-2024 09:01-0400 Body height 160.02 cm [facility] 08-05-2024 09:01-0400 Body mass index (BMI) [Ratio] 24 kg/m2 [facility] 08-05-2024 09:01-0400 Body weight 61.68 kg [facility] 08-05-2024 09:01-0400 Diastolic blood pressure 77 mm[Hg] [facility] 08-05-2024 09:01-0400 Heart rate 69 /min [facility] 08-05-2024 09:01-0400 Systolic blood pressure 116 mm[Hg] [facility] 12-04-2023 13:41-0500 Body height 160 cm Shai Hendricks MD Work Phone: [facility] 12-04-2023 13:41-0500 Body mass index (BMI) [Ratio] 24.09 kg/m2 Shai Hendricks MD Work Phone: [facility] 12-04-2023 13:41-0500 Body weight 61.69 kg Shai Hendricks MD Work Phone: [facility] 12-04-2023 13:41-0500 Diastolic blood pressure 100 mm[Hg] Shai Hendricks MD Work Phone: [facility] 12-04-2023 13:41-0500 Heart rate 61 /min Shai Hendricks MD Work Phone: [facility] 12-04-2023 13:41-0500 SaO2% (BldA) [Mass fraction] 97 % Shai Hendricks MD Work Phone: [facility] 12-04-2023 13:41-0500 Systolic blood pressure 190 mm[Hg] Shai Hendricks MD Work Phone: [facility] 11-28-2023 15:00-0500 Body height 160.02 cm Ines Mckeon Other [employer] Other 11-28-2023 15:00-0500 Body mass index (BMI) [Ratio] 24.55 kg/m2 Ines Mckeon Other [employer] Other 11-28-2023 15:00-0500 Body weight 62.87 kg Ines Mckeon Other [employer] Other 11-28-2023 15:00-0500 Diastolic blood pressure 88 mm[Hg] Ines Mckeon Other [employer] Other 11-28-2023 15:00-0500 Systolic blood pressure 144 mm[Hg] Ines Mckeon Other [employer] Other 06-27-2023 10:00-0400 Body height 160.02 cm Ines Mckeon Other [employer] Other 06-27-2023 10:00-0400 Body mass index (BMI) [Ratio] 24.27 kg/m2 Ines Mckeon Other [employer] Other 06-27-2023 10:00-0400 Body weight 62.14 kg Ines Mckeon Other [employer] Other 06-27-2023 10:00-0400 Diastolic blood pressure 82 mm[Hg] Ines Mckeon Other [employer] Other 06-27-2023 10:00-0400 SaO2% (BldA) [Mass fraction] 98 % Ines Mckeon Other [employer] Other 06-27-2023 10:00-0400 Systolic blood pressure 148 mm[Hg] Ines Mckeon Other [employer] Other 06-24-2023 15:30-0400 Body height 160.02 cm Ines Mckeon Other [employer] Other 06-24-2023 15:30-0400 Body mass index (BMI) [Ratio] 24.27 kg/m2 Ines Mckeon Other [employer] Other 06-24-2023 15:30-0400 Body weight 62.14 kg Ines Mckeon Other [employer] Other 06-24-2023 15:30-0400 Diastolic blood pressure 100 mm[Hg] Ines Mckeon Other [employer] Other 06-24-2023 15:30-0400 SaO2% (BldA) [Mass fraction] 99 % Ines Mckeon Other [employer] Other 06-24-2023 15:30-0400 Systolic blood pressure 164 mm[Hg] Ines Mckeon Other [employer] Other 06-07-2023 11:15-0400 Body height 160.02 cm Brooke Cha Other [employer] Other 06-07-2023 11:15-0400 Body mass index (BMI) [Ratio] 23.91 kg/m2 Brooke Cha Other [employer] Other 06-07-2023 11:15-0400 Body weight 61.24 kg Brooke Cha Other [employer] Other 06-07-2023 11:15-0400 Diastolic blood pressure 96 mm[Hg] Brooke Cha Other [facility] [facility] [employer] Other 06-07-2023 11:15-0400 Systolic blood pressure 158 mm[Hg] Brooke Semaj Other [employer] Other Encounters Encounter Date Encounter Type Care Provider Facility Start: 09-07-2024 End: 09-07-2024 Office outpatient visit 25 minutes Rojas Valencia MD Work Phone: [facility] Comment on above: Hx of chest pain (Pr imary Dx); Essential hypertension; Mild aortic regurgitation; Mild mitral regurgitation; Hyperlipidemia, unspecified hyperlipidemia type; PAD (peripheral artery disease) ([facility]) Start: 09-07-2024 End: 09-07-2024 ambulatory [facility] Start: 09-04-2024 End: 09-04-2024 Telephone encounter [facility] Start: 08-05-2024 End: 08-05-2024 ambulatory [facility] Work Phone: Start: 08-05-2024 End: 08-05-2024 [facility] Work [facility]: Start: 03-12-2024 End: 03-12-2024 ambulatory [facility] Start: 03-12-2024 End: 03-12-2024 ambulatory [facility] Start: 03-05-2024 End: 03-05-2024 ambulatory [facility] Start: 01-09-2024 End: 01-09-2024 ambulatory SHAI HENDRICKS [facility] Start: 12-04-2023 End: 12-04-2023 Office outpatient new 60 minutes Shai Hendricks MD Work Phone: [facility] Comment on above: Essential hypertensi on (Primary Dx); Mixed hyperlipidemia Start: 12-04-2023 End: 12-04-2023 ambulatory SHAI HENDRICKS [facility] Start: 12-03-2023 Telephone encounter Brooke Padilla CMA [facility] Start: 11-28-2023 End: 11-28-2023 ambulatory Ines Mckeon Other [employer] Other Start: 11-28-2023 Office outpatient vi sit 15 minutes Ines Mckeon [facility] Start: 11-26-2023 End: 11-26-2023 ambulatory NANDINI CASTILLO Not Available Start: 11-18-2023 Telephone encounter Kenzie Gregg RN [facility] Comment on above: Hypertension Start: 08-28-2023 End: 08-28-2023 ambulatory Ines Mckeon Other [employer] Other Start: 08-28-2023 Telephone encounter Ines Mckeon [facility] Start: 07-31-2023 End: 07-31-2023 ambulatory Ines Mckeon Other [employer] Other Start: 07-31-2023 Telephone encounter Ines Mckeon [facility] Start: 06-27-2023 End: 06-27-2023 ambulatory Ines Mckeon Other [employer] Other Start: 06-27-2023 Office outpatient vi sit 15 minutes Ines Mckeon [facility] Start: 06-25-2023 End: 06-25-2023 ambulatory Ines Mckeon Other [employer] Other Start: 06-25-2023 Telephone encounter Ines Mckeon [facility] Start: 06-24-2023 End: 06-24-2023 ambulatory Ines Mckeon Other [employer] Other Start: 06-24-2023 Encounter for genera l adult medical examination without abnormal findings Ines Mckeon [facility] Start: 06-24-2023 Periodic preventive med est patient 40-64yrs Ines Mckeon [facility] Start: 06-24-2023 Telephone encounter Ines Mckeon [facility] Start: 06-07-2023 End: 06-07-2023 ambulatory Ines Mckeon Other [employer] Other Start: 06-07-2023 Office outpatient vi sit 15 minutes Brooke Cha [facility] Start: 06-07-2023 Telephone encounter Ines Mckeon [facility] Start: 11-16-2022 End: 11-17-2022 ambulatory NONE LISTED REQUEST Facility:[facility] Start: 05-22-2022 End: 05-23-[address] JORDAN KAISER Facility:[facility] Start: 05-18-2022 End: 05-19-2022 ambulatory NONE LISTED REQUEST Facility:[facility] Start: 03-28-2022 End: 03-29-[address] JORDAN KAISER Facility:[facility] Start: 03-02-2022 End: 03-03-[address] JORDAN KAISER Facility:[facility] Start: 10-04-2021 Adult health examination Karen Mckeon Other [employer] Other Procedures Date Procedure Procedure Detail Performing Clinician Start: 03-05-2024 Follow-up visit Follow-up ELISA MINOR Plan of Treatment Date Care Activity Detail Author Start: 09-07-2025 Adult BMI Screening Adult BMI Screening [facility] Start: 09-07-2025 Tobacco Screening Tobacco Screening [facility] Start: 03-12-2025 Adult BMI Screening Adult BMI Screening [facility] Start: 03-12-2025 Tobacco Screening Tobacco Screening [facility] Start: 12-04-2024 Adult BMI Screening Adult BMI Screening [facility] Start: 12-04-2024 Tobacco Screening Tobacco Screening [facility] Start: 09-17-2024 End: 09-17-2024 Patient encounter procedure 09/17/2024 8:30 AM EST Appointment [facility] [address] [place] [address] [facility] Start: 09-10-2024 End: 09-10-2024 Patient encounter procedure 09/10/2024 1:00 PM EDT Office Visit [facility] [address] [place] [address] Hailey Gastelum MD [address] [place] [address] [facility] Start: 09-07-2024 End: 09-07-2025 US.doppler Renal vessels - bilateral Vas renal artery duplex complete Vascular Ultrasound Routine Essential hypertension PAD (peripheral artery disease) ([facility]) Expected: 09/07/2024, Expires: 09/07/2025 [facility] Work Phone: Comment on above: Expected: 09/07/2024, Expires: Start: 09-07-2024 End: 09-07-2024 Patient encounter procedure 09/07/2024 8:15 AM EDT Office Visit [facility] [address] [place] [id number] Rojas Valencia MD [address] [place] [address] [facility] Start: 08-05-2024 Patient referral [facility] Work Phone: Start: 07-24-2024 Adult BMI Screening Adult BMI Screening [facility] Start: 07-24-2024 Tobacco Screening Tobacco Screening [facility] Start: 07-12-2024 Influenza vaccination Influenza Vaccine [facility] Start: 01-09-2024 End: 01-09-2024 Patient encounter procedure 01/09/2024 9:00 AM EST Appointment [facility] [address] [place] [id number] Shai Hendricks MD [address] [place], [place] [id number] [facility] Start: 12-04-2023 End: 12-04-2024 Echo complete W/O contrast Echo complete W/O contrast Echocardiography Routine Essential hypertension Mixed hyperlipidemia Expected: 12/04/2023, Expires: 12/04/2024 [facility] Work Phone: Comment on above: Expected: 12/04/2023, Expires: Start: 12-04-2023 End: 12-04-2023 Patient encounter procedure 12/04/2023 2:00 PM EST [facility] [address] [place] [address] Shai Hendricks MD [address] [place] [address] [facility] Start: 07-12-2023 Influenza vaccination Influenza Vaccine [facility] Start: 2013 Administration of varicella zoster vaccine Zoster (Shingles) Vaccine (1 of 2) [facility] Start: 1982 DTaP,Tdap and Td Vaccines (1 - Tdap) DTaP,Tdap and Td Vaccines (1 - Tdap) [facility] Start: 1975 Depression Screening Depression Screening [facility] Patient referral [facility] Work Phone: Payers Date Payer Category Payer Blue [employer] Blue Crist[employer] priya [employer] - [place] [id number] 2022 Unknown 2022 Blue Cross Blue Shield [id number] 2019 Unknown [id number] 1965 Unknown [id number] 2.16.840.1.277680.3.579.2. 593 1963 Unknown [id number] 2.16.840.1.144283.3.579.2. 593 1963 Unknown [id number] 2.16.840.1.036307.3.579.2. 593 1963 Unknown [id number] 2.16.840.1.716061.3.579.2. 593 1963 Unknown [id number] 2.16.840.1.921340.3.579.2. 593 1963 Unknown [id number] 2.16.840.1.528863.3.579.2. 1259 1963 Unknown [id number] 2.16.840.1.489045.3.579.2. 1286 1963 Unknown [id number] 2.16.840.1.314843.3.579.2. 1285 1963 Unknown [id number] 2.16.840.1.413672.3.579.2. 128 1963 Unknown [id number] 2.16.840.1.615343.3.579.2. 1285 1963 Unknown [id number] 2.16.840.1.512413.3.579.2. 1286 1963 Unknown [id number] 2.16.840.1.797269.3.579.2. 1285 1963 Unknown [id number] 2.16.840.1.611200.3.579.2. 1285 1963 Unknown [id number] 2.16.840.1.907092.3.579.2. 1285 1963 Unknown [id number] 2.16.840.1.586488.3.579.2. 1286 Self-pay Self Pay [id number] Social History Date Type Detail Facility Unknown if ever smoked [facility] [employer] Other Start: 12-08-2019 End: 11-22-2020 Sex Assigned At [facility] [employer] Other Start: 05-22-2022 End: 03-05-2024 Tobacco smoking status NHIS Ex-smoker [facility] History of tobacco use Current smoker [facility] History of tobacco use Cigarette Smoker [facility] Start: 05-22-2022 End: 03-05-2024 Tobacco use and exposure Smokeless tobacco non-user [facility] Start: 07-24-2023 End: 09-07-2024 Alcohol intake Current drinker of alcohol (finding) [facility] Start: 12-08-2019 End: 11-22-2020 History of Social function [facility] Frequency of Alcohol Consumption Monthly or less [facility] Start: 11-22-2020 Alcohol Comment rarely [facility] Start: 1965 Sex Assigned At Not on file [facility] Start: 1965 Sex Assigned At Female F [facility] Start: 06-16-2015 Sex Female (finding) [facility] Clinical Notes 06-07-2023 to 09-07-2024 Rojas Valencia MD - 09/07/2024 8:15 AM EDTTelephone Encounter - Brooke Padilla [facility] - 09/04/2024 1:02 PM EDTTelephone Encounter - Brooke Padilla [facility] - 09/04/2024 1:02 PM EDT Note Date & Type Note Facility 09-07-2024 History of Presen t illness Narrative Marilia Bryant Date of visit: 09/07/2024 Date of : 1965 Age: 59 y.o. Patient Active Problem List Diagnosis Essential hypertension Mixed hyperlipidemia Right thyroid nodule Hypothyroidism Arthritis Allergies Allergen Reactions Nifedipine Dizziness nausea Bee Venom Protein (Honey Bee) Carries epi pen Current Outpatient Medications Medication Sig Dispense Refill ALPRAZolam (XANAX) 0.25 mg tablet Take 1 tablet (0.25 mg total) by mouth nightly as needed for anxiety or sleep. amLODIPine (NORVASC) 10 mg tablet Take 1 tablet (10 mg total) by mouth in the morning. (Patient taking differently: Take 0.5 tablets (5 mg total) by mouth in the morning.) 90 tablet 3 ascorbic acid (VITAMIN C ORAL) Take by mouth daily. carvediloL (COREG) 25 mg tablet Take 2 tablets (50 mg total) by mouth in the morning and 2 tablets (50 mg total) in the evening. Take with meals. 120 tablet 3 cholecalciferol, vitamin D3, (VITAMIN D3 ORAL) Take by mouth daily. diclofenac (VOLTAREN) 75 mg EC tablet Take 1 tablet (75 mg total) by mouth nightly. hyoscyamine (ANASPAZ,LEVSIN) 0.125 mg tablet Take 1 tablet (0.125 mg total) by mouth every 4 (four) hours as needed for cramping. levothyroxine (SYNTHROID, LEVOTHROID) 50 MCG tablet Take 1 tablet (50 mcg total) by mouth nightly. 11 loperamide (IMODIUM A-D) 2 mg tablet Take 1 tablet (2 mg total) by mouth 4 (four) times a day as needed for diarrhea. melatonin (CIRCADIN) 5 mg tablet Take 2 tablets (10 mg total) by mouth nightly. MULTIVITAMIN ORAL Take by mouth daily. rosuvastatin (CRESTOR) 20 mg tablet Take 1 tablet (20 mg total) by mouth in the morning. Pt takes Saturday, , and fridays . spironolactone (ALDACTONE) 50 mg tablet Take 1 tablet (50 mg total) by mouth in the morning. 30 tablet 11 traZODone (DESYREL) 50 mg tablet Take 1 tablet (50 mg total) by mouth nightly. valsartan (DIOVAN) 160 mg tablet Take 1 tablet (160 mg total) by mouth in the morning. 90 tablet 3 vitamin E acetate (VITAMIN E ORAL) Take by mouth daily. No current facility-administered medications for this visit. Chief Complaint Patient presents with Follow-up 6 MONTHS AND STRESS Hypertension History of Present Illness Patient with history of atypical chest pain with negative nuclear stress test 02/2024, mild AR, mild MR, hypertension, hyperlipidemia, peripheral artery disease. Here for follow-up visit. Last seen in office 02/2024. Visit reviewed. Patient stated that she has been doing fairly well. Denied any chest pain or shortness of breath or palpitations or dizziness orthopnea or edema. Has recurrent heartburn after meals, improves with taking Prilosec [id number] and Pepcid. Has a GI doctor [facility] has not seen for awhile. No tobacco use or alcohol use or recreational drug use. Goes out for walks with the dog regularly. Past Medical History: Diagnosis Date Arthritis Hypertension Hypothyroidism Right thyroid nodule 11/2020 Statin intolerance No data recorded No data recorded No data recorded Past Surgical History: Procedure Laterality Date ANKLE SURGERY SECTION CHOLECYSTECTOMY COLONOSCOPY N/A 07/20/2019 Performed by Aris Tang DO at [facility] EGD N/A 07/20/2019 Performed by Aris Tang DO at [facility] EXPLORATORY LAPAROTOMY x2 HYSTERECTOMY LAPAROSCOPIC APPENDECTOMY N/A 07/28/2019 Performed by Aris Tang DO at [facility] OTHER SURGICAL HISTORY several glands removed US GUIDED BIOPSY THYROID FINE NEEDLE Right 11/2020 WRIST SURGERY Family History Problem Relation Age of Onset Heart disease Mother Thyroid cancer Mother Heart disease Father Cancer Father Lung cancer Brother Cancer Brother smoker Cancer Maternal Grandfather stomach Social History Socioeconomic History Marital status: Spouse name: Not on file Number of children: Not on file Years of education: Not on file Highest education level: Not on file Occupational History Not on file Tobacco Use Smoking status: Former Types: Cigarettes Smokeless tobacco: Never Vaping Use Vaping status: Former Substances: Nicotine, Flavoring Devices: Disposable Substance and Sexual Activity Alcohol use: Yes Comment: rarely Drug use: Never Sexual activity: Yes Partners: Male Other Topics Concern Caffeine Use Yes Social History Narrative Not on file Social Drivers of Health Financial Resource Strain: Not on file Food Insecurity: No Food Insecurity (09/07/2024) Hunger Screening Food Insecurity - Worry: Never True Food Insecurity - Inability: Never True Transportation Needs: Not on file Physical Activity: Not on file Stress: Not on file Social Connections: Not on file Interpersonal Safety: Not on file Housing Instability: Not on file Review of Systems Review of Systems Respiratory: Negative for cough, hemoptysis and wheezing. Musculoskeletal: Positive for joint pain. Gastrointestinal: Negative for abdominal pain, change in bowel habit and hematochezia. Genitourinary: Negative for dysuria and hematuria. Neurological: Negative for focal weakness, headaches and paresthesias. CARDIOVASCULAR: Please review HPI. Physical Examination General appearance: Alert, oriented and cooperative. In no acute distress. Skin: Warm and dry to touch. Head: Normocephalic, without obvious abnormality, atraumatic. Ears, Nose, Mouth, Throat: Throat clear without erythema or exudate. Dentition intact. Eyes: Conjunctivae unremarkable, EOM intact. Neck: No JVD, No carotid bruit. Neck supple, trachea midline. Respiratory: Clear to auscultation bilaterally, no use of accessory muscles. Cardiovascular: RRR with normal S1 and S2 with no murmurs. Gastrointestinal: Soft, non-tender. Bowel sounds normal. Musculoskeletal: No peripheral edema. Neurologic: Oriented to time, person and place, affect appropriate. No focal/major motor defects noted. Psychiatric: Appropriate mood, memory and judgement. VITAL SIGNS: BP 130/86 (BP Site: Left Arm, BP Postition: Sitting) Pulse 72 Ht 160 cm (5' 3 ) Wt 61.7 kg (136 lb) BMI 24.09 kg/m Orders Placed or Reconciled This Encounter Medications traZODone (DESYREL) 50 mg tablet Sig: Take 1 tablet (50 mg total) by mouth nightly. diclofenac (VOLTAREN) 75 mg EC tablet Sig: Take 1 tablet (75 mg total) by mouth nightly. There are no discontinued medications. IMPRESSIONS/PLAN 1. Hx of chest pain 2. Essential hypertension - Vas renal artery duplex complete; Future 3. Mild aortic regurgitation 4. Mild mitral regurgitation 5. Hyperlipidemia, unspecified hyperlipidemia type 6. PAD (peripheral artery disease) ([facility]) - Vas renal artery duplex complete; Future Previous cardiac related labs and test results were reviewed and discussed with the patient. Hx of atypical chest pain - negative low risk exercise nuclear stress test 03/2024 Normal EF TTE Mild AR, mild MR Hypertension Hyperlipidemia - 03/2024: Total cholesterol 164, HDL 45, LDL 87, triglycerides 112 Hx of gastric PAD - minimal R renal artery stenosis Thyroid nodule Patient is here for follow-up visit. Doing well stable from a cardiac standpoint. Given patient has history of mild right renal artery stenosis on CTA few years ago. Being on multiple blood pressure medications. I ordered bilateral renal artery duplex to assess for any significant stenosis. Will follow-up on results with recommendations as needed. No changes in his medications. Follow-up in 12 months or sooner if needed. Patient to call us with any cardiac questions or concerns. TODAYS ORDERS No orders of the defined types were placed in this encounter. FOLLOW UP Return in about 1 year (around 09/07/2025). PCP: INES MCKEON MD Referring Physician: Ines Mckeon MD [address] [place] [address] documented in this encounter [facility] 09-04-2024 Miscellaneous Notes Formattin g of this note might be different from the original. Left message for patient to remind them to bring their most current medication list with them to their appointment. documented in this encounter [facility] 09-04-2024 Telephone encount er Note Left message for patient to remind them to bring their most current medication list with them to their appointment. [facility] 12-04-2023 History of Presen t illness Narrative Marilia Bryant Date of visit: 12/04/2023 Date of : 1965 Age: 58 y.o. Patient Active Problem List Diagnosis Essential hypertension Mixed hyperlipidemia Right thyroid nodule Hypothyroidism Arthritis Allergies Allergen Reactions Nifedipine Dizziness nausea Bee Venom Protein (Honey Bee) Carries epi pen Current Outpatient Medications Medication Sig Dispense Refill ALPRAZolam (XANAX) 0.25 mg tablet Take 1 tablet (0.25 mg total) by mouth nightly as needed for anxiety or sleep. ascorbic acid (VITAMIN C ORAL) Take by mouth daily. carvediloL (COREG) 25 mg tablet Take 2 tablets (50 mg total) by mouth in the morning and 2 tablets (50 mg total) in the evening. Take with meals. 120 tablet 3 cholecalciferol, vitamin D3, (VITAMIN D3 ORAL) Take by mouth daily. diclofenac (VOLTAREN) 75 mg EC tablet Take 1 tablet (75 mg total) by mouth in the morning. hyoscyamine (ANASPAZ,LEVSIN) 0.125 mg tablet Take 1 tablet (0.125 mg total) by mouth every 4 (four) hours as needed for cramping. levothyroxine (SYNTHROID, LEVOTHROID) 50 MCG tablet Take 1 tablet (50 mcg total) by mouth nightly. 11 loperamide (IMODIUM A-D) 2 mg tablet Take 1 tablet (2 mg total) by mouth 4 (four) times a day as needed for diarrhea. melatonin (CIRCADIN) 5 mg tablet Take 2 tablets (10 mg total) by mouth nightly. MULTIVITAMIN ORAL Take by mouth daily. rosuvastatin (CRESTOR) 20 mg tablet Take 1 tablet (20 mg total) by mouth in the morning. Pt takes Saturday, , and fridays . spironolactone (ALDACTONE) 25 mg tablet Take 1 tablet (25 mg total) by mouth in the morning. 90 tablet 3 vitamin E acetate (VITAMIN E ORAL) Take by mouth daily. No current facility-administered medications for this visit. Chief Complaint Patient presents with Follow-up EST PT BP ISSUES MED CHANGES SCHED W/PT History of Present Illness Marilia Bryant is a 58 y.o. year old female that presents today for a follow up on hypertension and hyperlipidemia. Patient states that her BP has been spiking recently. Her BP was 202/117 at work one day. Her BP has been running high at home as well. She is getting headaches and blurry vision as a result of her BP. When she is well controlled, her BP will be in the 140s/80s. She admits to having notable stress for the last couple of weeks. She has been having difficulty sleeping secondary to thyroid issues. She will drink coffee in the morning. Patient takes Diclofenac once every night before bed for joint pains. She normally only sleeps 4-6 hours a night. She admits to having a 10 year history of hypertension, worse in the last 5 years. She does not consume salt rich meals. Patient is doing well. Patient denies any chest pains, palpitations, dizziness, shortness of breath, syncope, or syncopal episodes. Past Medical History: Diagnosis Date Arthritis Hypertension Hypothyroidism Right thyroid nodule 11/2020 Statin intolerance No data recorded No data recorded No data recorded Past Surgical History: Procedure Laterality Date ANKLE SURGERY SECTION CHOLECYSTECTOMY COLONOSCOPY N/A 07/20/2019 Performed by Aris Tang DO at [facility] EGD N/A 07/20/2019 Performed by Aris Tang DO at [facility] EXPLORATORY LAPAROTOMY x2 HYSTERECTOMY LAPAROSCOPIC APPENDECTOMY N/A 07/28/2019 Performed by Aris Tang DO at [facility] OTHER SURGICAL HISTORY several glands removed US GUIDED BIOPSY THYROID FINE NEEDLE Right 11/2020 WRIST SURGERY Family History Problem Relation Age of Onset Heart disease Mother Thyroid cancer Mother Heart disease Father Cancer Father Lung cancer Brother Cancer Brother smoker Cancer Maternal Grandfather stomach Social History Socioeconomic History Marital status: Spouse name: Not on file Number of children: Not on file Years of education: Not on file Highest education level: Not on file Occupational History Not on file Tobacco Use Smoking status: Former Years: 8 Types: Cigarettes Smokeless tobacco: Never Vaping Use Vaping Use: Former Substances: Nicotine, Flavoring Devices: Disposable Substance and Sexual Activity Alcohol use: Yes Comment: rarely Drug use: Never Sexual activity: Yes Partners: Male Other Topics Concern Caffeine Use Yes Social History Narrative Not on file Social Determinants of Health Financial Resource Strain: Not on file Food Insecurity: No Food Insecurity (12/04/2023) Hunger Screening Food Insecurity - Worry: Never True Food Insecurity - Inability: Never True Transportation Needs: Not on file Physical Activity: Not on file Stress: Not on file Social Connections: Not on file Interpersonal Safety: Not on file Housing Instability: Not on file Review of Systems Review of Systems Constitutional: Positive for malaise/fatigue. Eyes: Positive for blurred vision. Musculoskeletal: Positive for back pain. Neurological: Positive for dizziness, headaches and light-headedness. Psychiatric/Behavioral: Positive for depression. The patient is nervous/anxious. CARDIOVASCULAR: Please review HPI. Physical Examination General appearance: Alert, oriented and cooperative. In no acute distress. Skin: Warm and dry to touch. Head: Normocephalic, without obvious abnormality, atraumatic. Eyes: Conjunctivae unremarkable, EOM intact. Neck: No JVD, No carotid bruit. Neck supple, trachea midline. Respiratory: Clear to auscultation bilaterally, no use of accessory muscles. Cardiovascular: RRR with normal S1 and S2 with no murmurs. Musculoskeletal: No peripheral edema. Neurologic: Oriented to time, person and place, affect appropriate. No focal/major motor defects noted. Psychiatric: Appropriate mood, memory and judgement. VITAL SIGNS: Ht 160 cm (5' 3 ) Wt 61.7 kg (136 lb) BMI 24.09 kg/m Orders Placed or Reconciled This Encounter Medications ALPRAZolam (XANAX) 0.25 mg tablet Sig: Take 1 tablet (0.25 mg total) by mouth nightly as needed for anxiety or sleep. There are no discontinued medications. IMPRESSIONS/PLAN 1. Essential hypertension 2. Mixed hyperlipidemia 1. Essential hypertension BP is elevated today at 190/100. I recommended Tylenol for joint pains instead of Diclofenac. I will prescribe Amlodipine and increase Aldactone, 50 mgs once daily, to improve management of hypertension. Echocardiogram ordered to evaluate cardiac function in relation to chronic hypertension. 2. Mixed hyperlipidemia Last lipid panel obtained on 07/03/2023 - Cholesterol 175, HDL 62, LDL 93. Discussed with the patient the diagnosis and treatment plan. Answered all questions to the patients satisfaction. Patient is agreeable to the plan of care. TODAYS ORDERS No orders of the defined types were placed in this encounter. FOLLOW UP No follow-ups on file. PCP: INES MCKEON MD Referring Physician: Ines Mckeon MD [address] [place], [place] [id number] A total of 10 minutes were spent with the patient, of which more than 50% consisted of counseling. Scribed for and in the presence of Shai Hendricks MD by Estevan Proctor. Estevan Proctor 12/04/2023 2:14 PM documented in this encounter [facility]23 Miscellaneous Notes Formattin g of this note might be different from the original. Called patient to remind them to bring their most current copy of their medication list with them to their appt. Patient verbalizes understanding. documented in this encounter [facility] 12-03-2023 Telephone encount er Note Called patient to remind them to bring their most current copy of their medication list with them to their appt. Patient verbalizes understanding. [facility]28-2023 Evaluation note Encounter Date Diagnosis Assessment Notes Nov, Essential (primary) hypertension (ICD-10 - I10) BP improved. Completed FMLA paperwork. Keep cardiology appt next week. Nov, Acute anxiety (ICD-10 - F41.9) Requests prn med to help her settle down and/or sleep. Understands that xanax could make her too sedated. [employer] 01-08-2024 Miscellaneous Notes* Telephone Encounter - Kenzie Gregg RN - 11/18/2023 1:51 PM EST Received p/c from pt. Pt states had Headache this weekend and started monitoring BP. BP has consistently been 170's-180's/ 112-116 HR 80's-90's for past 3 days. Pt on own took an extra dose of Coreg 25 mg on 11/16 &11/17. Brought BP down some but went right back up. Denies any extra salt in diet. Denies any med changes. Denies any med changes. Will message SER- Last seen 07/24/2023 * Telephone Encounter - MELISSA Dutton - 11/18/2023 1:51 PM EST Increase Coreg to 50 mg b.i.d.. She should be seen by general cardiology next available * Telephone Encounter - Kenzie Gregg RN - 11/18/2023 1:51 PM EST Response called to pt. Appt given [facility] encounter Note* Telephone Encounter - Kenzie Gregg RN - 11/18/2023 1:51 PM EST Received p/c from pt. Pt states had Headache this weekend and started monitoring BP. BP has consistently been 170's-180's/ 112-116 HR 80's-90's for past 3 days. Pt on own took an extra dose of Coreg 25 mg on 11/16 &11/17. Brought BP down some but went right back up. Denies any extra salt in diet. Denies any med changes. Denies any med changes. Will message SER- Last seen 07/24/2023 [facility] [facility] [id number] Telephone encounter Note* Telephone Encounter - MELISSA Dutton - 11/18/2023 1:51 PM EST Increase Coreg to 50 mg b.i.d.. She should be seen by general cardiology next available [employer]01-08-2024 Telephone encounter Note* Telephone Encounter - Kenzie Gregg RN - 11/18/2023 1:51 PM EST Response called to pt. Appt given [employer]08-17-2023 Evaluation note* Encounter Date Diagnosis Assessment Notes Treatment Notes Treatment Clinical Notes Jun, Neck pain on left side (ICD-10 - M54.2) Discussed potential imaging US v. CT; ENT referral and further workup. Pt declines that at this time. Requests prn pain medication for neck and L upper back pain. Will call or go to ER if problem continues or worsens and followup prn. [employer] 08-14-2023 Evaluation note* Encounter Date Diagnosis Assessment Notes Treatment Notes Treatment Clinical Notes Jun, Well adult exam (ICD-10 - Z00.00) We have discussed the necessity of following up with PCP regularly as well as specialists, as needed. Discussed F/U with dentistry and optometry at least yearly. Discussed all preventative measures/ cancer screenings as applicable to this patient. Emphasized the importance of a reduced fat, low carb diet to promote heart health and controlled blood sugars. Reviewed social history and ensured patient is safe within the home today. Pt denies any abuse of alcohol, nicotine, caffeine or recreational drugs. I have ensured patient is of stable mental and physical health today. We have discussed appropriate F/U schedule as well as blood work and vaccinations that apply. All questions answered and patient is sent home pleased, without concerns. Declines mammogram Jun, Hypothyroidism, unspecified (ICD-10 - E03.9) PT follows w Dr. Castillo, but requests full lab for thyroid [employer] 07-28-2023 Evaluation note* Encounter Date Diagnosis Assessment Notes Treatment Notes Treatment Clinical Notes May, Cellulitis of head except face (ICD-10 - L03.811) Take antibiotic as directed, and complete full course even if symptoms are no longer present. Also use mupricon ointment on the area. Take ibuprofen/Tylenol as needed for pain and discomfort. Encouraged patient to use moist warm compresses on area to help facilitate draining. Wash area with warm soapy water twice daily, and pat dry. Cover area with bandage if potential exposure to dirty environment and while working. May leave area open to air when at home. Patient instructed to monitor symptoms closely. Patient should follow up with if symptoms persist or worsen despite treatment, or if pt begins to develop fluctuant abscess that may need I&D. Patient verbalized understanding and agreement with treatment plan. May, Irritable bowel syndrome with diarrhea (ICD-10 - K58.0) Discussed symptoms, will start hycosamine to use as needed unitl she can schedule her wellness and get referral to GI at the [facility]. Direceted on use of hycosamine. Follow-up with Dr. Mckeon. Located Within [facility] [employer] Other Evaluation noteNo InformationNortDepartment of [facility] [employer] Other Evaluation note* Diagnosis Essential hypertension- Primary Unspecified essential hypertension Mixed hyperlipidemia documented [facility]* Diagnosis Onset Date Resolution Status Multinodular goiter acute Thyroid function test abnormal acute [facility] Work Phone: Evaluation note* Diagnosis Hx of chest pain- Primary Essential hypertension Unspecified essential hypertension Mild aortic regurgitation Mild mitral regurgitation Hyperlipidemia, unspecified hyperlipidemia type PAD (peripheral artery disease) ([facility]) Unspecified peripheral vascular disease documented in this encounter [employer] general Narrative - Reported* Type Description Date Medical History Problem Title : Prob lems Reconciled, Problem Status : Active,, Surgical History GALLBLADDER Surgical History LAPROSCOPIES Surgical History HYSTERECTOMY Surgical History X 3 Surgical History REMOVAL SALAVARY GLAND LEFT NEC K MULTIPLE TIMES Hospitalization History SURGIES Hospitalization History IRRITABLE BOWEL [employer] [facility] general Narrative - Reported* Type Description Date Medical History Problem Title : Prob lems Reconciled, Problem Status : Active,, Surgical History GALLBLADDER Surgical History GALLBLADDER Surgical History LAPROSCOPIES Surgical History LAPROSCOPIES Surgical History HYSTERECTOMY Surgical History HYSTERECTOMY Surgical History X 3 Surgical History X 3 Surgical History REMOVAL SALAVARY GLAND LEFT NEC K MULTIPLE TIMES Surgical History REMOVAL SALAVARY GLAND LEFT NEC K MULTIPLE TIMES Hospitalization History SURGIES Hospitalization History IRRITABLE BOWEL [employer] Other History general Narrative - Reported* Type Description Date Surgical History GALLBLADDER Surgical History LAPROSCOPIES Surgical History HYSTERECTOMY Surgical History X 3 Surgical History REMOVAL SALAVARY GLAND LEFT NEC K MULTIPLE TIMES Hospitalization History SURGIES Hospitalization History IRRITABLE BOWEL [employer] Other Hospital Discharge instructionsAmbulatory Orders* Referral to Endocrinology Time Frame: 08/05/24, Location: None [facility] Work Phone: InstructionsNot on filedocumented in this encounter [facility] SystemInstructionsNot on filedocumented in this encounter [facility] SystemInstructionsNot on filedocumented in this encounter [employer] SystemInstructionsNot on filedocumented in this encounter [facility] Summary Purpose Family History No Family History Records Found Relationship Condition Age at Onset Recorded Date/T jessica father Malignant neoplasm Unknown Advance Directives No Advanced Directives Records Found Advance Directive Response Recorded Date/ Time Advance Directives No July 12:45pm Reason for Referral Specialty Diagnoses / Procedures Referred By Contjd henry Referred To Contact Diagnoses Essential hypertension Mixed hyperlipidemia Procedures Echo complete W/O contrast Shai Hendricks MD [address] [place] [address] [facility] [address] [place] [address] Phone: [phone] Referral ID Status Reason Start Date Expiration Date V isits Requested Visits Authorized [id number] Pending Review 12/04/2023 12/03/2024 1 1 Chief Complaint and Reason for Visit Chief Complaint med refills Reason for Visit Multinodular goiter Thyroid function test abnormal Additional Source Comments INFORMATION SOURCE (unrecogn ized section and content) DATE CREATED AUTHOR 02/14/2023 [facility] DATE CREATED AUTHOR AUTHOR'S ORGANIZ ATION 11/27/2023 [facility] EPIC DATE CREATED AUTHOR AUTHOR'S ORGANIZ ATION 09/07/2024 [facility] REASON FOR VISIT (unrecogniz ed section and content) Reason Onset Date Comments Hypertension 11/18/2023 Reason Comments Follow-up EST PT BP ISSUES MED CHANGES SCHED W/PT Reason Comments Follow-up 6 MONTHS AND STRESS Hypertension Care Teams (unrecognized sec tion and content) Senior Software Manager Relationship Specialty Start Date End Date Ines Mckeon MD [address] [place] [address] [id number] PCP - General Family Medicine 12/08/19 Senior Software Manager Relationship Specialty Start Date End Date Ines Mckeon MD [address] [place] [address] [id number] PCP - General Family Medicine 12/08/19 Senior Software Manager Relationship Specialty Start Date End Date Ines Mckeon MD [address] [place] [address] [id number] PCP - General Family Medicine 12/08/19 Team Status: Active Member Role Status Dates Oliverio Maldonado MD Primary Care Provider Active Team Status: Inactive Member Role Status Dates Oliverio Maldonado MD Primary Care Provider Active Start: August 05, 2024 End: August 05, 2024 Ines Mckeon MD Attending Provider Active St art: August 05, 2024 End: August 05, 2024 Senior Software Manager Relationship Specialty Start Date End Date Ines Mckeon MD [address] [place] [id number] PCP - General Family Medicine 12/08/19 Senior Software Manager Relationship Specialty Start Date End Date Ines Mckeon MD [address] [place] [address] [phone] PCP - General Family Medicine 12/08/19 Goals (unrecognized section and content) Goals may be documented in a n alternate section FOR RECORDS PERTAINING TO PATIENTS WHO ARE OR HAVE BEEN ENROLLED IN A CHEMICAL DEPENDENCY/SUBSTANCEABUSE PROGRAM, SOME INFORMATION MAY BE OMITTED. This clinical summary was aggregated from multiple sources. Caution should be exercised in using it in the provision of clinical care. This summary normalizes information from multiple sources, and as a consequence, information in this document may materially change the coding, format and clinical context of patient data. In addition, data may be omitted in some cases. CLINICAL DECISIONS SHOULD BE BASED ON THE PRIMARY CLINICAL RECORDS. [facility]. provides no warranty or guarantee of the accuracy or completeness of information in this document.
[2024-09-10] MEDS: KETOROLAC TROMETHAMINE 10 MG TABLET PO (16:52)
[2024-09-10] MEDS: OXYCODONE HCL/ACETAMINOPHEN 5MG/325MG 1 TAB PO (16:52)
== END 2024-09-10 17:36 | disposition home or self-care (01) ==
PROVIDERS: Emergency Provider Emergency Medicine Emergency Medical Services; PCP Family Medicine
DX: S93.402A Sprain of unspecified ligament of left ankle, initial encounter (principal); X50.1XXA Overexertion from prolonged static or awkward postures, initial encounter
CPT/HCPCS: 73610; 99284

== ENCOUNTER 2024-10-20 11:25 | Emergency (ER) | payer BC, SELFPAY ==
[2024-10-20] VITALS (27 sets, daily range): BP systolic 104–128; BP diastolic 64–76; PULSE 61–79; O2SAT 96–100; BMI 23.9
--- NOTE | 2024-10-20 11:48 | XR_ITS ---
The [address] [address] Patient Name: DANA MCGARRY MRN: [id number] date: 1965 Sex: F Assigned Patient Location: ER Current Patient Location: ER Accession/Order Number: [id number] Exam Date: 10/20/2024 12:19 Report Date: 10/20/2024 12:33 At the request of: CLIVE LUCIO Procedure: XR chest 1V EXAM: XR chest 1V HISTORY: . presyncope . COMPARISON: None. TECHNIQUE: Single view of the chest FINDINGS: Heart and vascularity are unremarkable. There is hyperexpansion of the lungs. Lungs are free of focal infiltrates. Mostly no acute bony abnormality is appreciated. EKG leads overlie the chest. XR/XR chest 1V IMPRESSION: 1. Hyperexpansion of lungs. 2. No acute heart or lung disease identified. Electronically authenticated by: ELDON MERINO Date: 10/20/2024 12:33
--- NOTE | 2024-10-20 11:48 | ECG_ITS ---
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
--- NOTE | 2024-10-20 11:48 | CT_ITS ---
The [address] [address] Patient Name: DANA MCGARRY MRN: [id number] date: 1965 Sex: F Assigned Patient Location: ER Current Patient Location: ER Accession/Order Number: [id number] Exam Date: 10/20/2024 12:19 Report Date: 10/20/2024 13:00 At the request of: CLIVE LUCIO Procedure: CT head/brain wo con EXAM: CT head/brain wo con HISTORY: confusion COMPARISON: None. TECHNIQUE: Multiple thin computed tomograms of the head were obtained, with sagittal and coronal reconstructions. FINDINGS: The ventricles are not enlarged, the lateral ventricles are symmetric and the third ventricles in the midline. The sylvian fissures and cortical sulci are unremarkable. There is no evidence of an intracranial hemorrhage, mass lesion or apparent acute infarct. A small remote lacunar infarct is seen in the basal ganglia on the right, as best seen in image 18 of series 5. No other focal abnormality is seen in the deep white matter. The cerebellum and visualized brainstem are intact. The visualized paranasal sinuses are clear. The middle ears are aerated. The mastoid sinuses are clear. There is no apparent acute skull fracture. CT/CT head/brain wo con IMPRESSION: There is no evidence of an intracranial hemorrhage, mass lesion or apparent acute infarct. A small remote lacunar infarct is noted on the right. The visualized paranasal sinuses are clear. There is no apparent acute skull fracture. Direct comparison with a previous study would be helpful in confirming the chronicity of these findings. Electronically authenticated by: KIRBY WEST Date: 10/20/2024 13:00
--- NOTE | 2024-10-20 11:49 | ED_ITS ---
HPI HPI - General Adult General Chief complaint: Dizziness Stated complaint: blood pressure droppped Time Seen by Provider: 10/20/24 11:42 Source: patient Mode of arrival: Wheelchair Limitations: no limitations History of Present Illness HPI narrative: Patient presenting to the emergency department for evaluation of lightheadedness. Patient states that she was working upstairs, felt ligh theaded, confused, disoriented, folic she was going to pass out. She sat down, they checked her blood pressure and it was 92 systolic. She was upstairs working she has a history of mitral valve regurgitation. Because they were able to get her blood pressure up, then back down she called her channel rebuilder and they told her to come to the emergency department. Patient states that she was focused, she felt confused. States that it all went away when her lightheadedness went away. States that she is back to her baseline right now. Patient states that she takes 4 antihypertensive medications and has had no changes to them recently. States that her blood pressure used to be in the 200s, but recently it has been in the 120s, low at 130s every time she has been in and been out. States that she feels better right now but her work and channel rebuilder office told her to get checked out. Related Data Home Medications ?Medication ?Instructions ?Recorded ?Confirmed amlodipine 5 mg tablet 5 mg PO QDAY 09/10/24 10/20/24 carvedilol 25 mg tablet 25 mg PO QPM 09/10/24 10/20/24 diclofenac sodium 75 mg 75 mg PO QDAY 09/10/24 10/20/24 tablet,delayed release rosuvastatin 20 mg tablet (Crestor) 20 mg PO .COMPLEX 09/10/24 10/20/24 spironolactone 25 mg tablet 25 mg PO QDAY 09/10/24 10/20/24 trazodone 50 mg tablet 50 mg PO .qhs 09/10/24 10/20/24 valsartan 160 mg tablet 160 mg PO QDAY 09/10/24 10/20/24 thyroid (pork) 30 mg tablet 30 mg PO DAILY 10/20/24 10/20/24 (Adthyza) Allergies Allergy/AdvReac Type Severity Reaction Status Date / Time No Known Drug Allergies Allergy Verified 10/20/24 11:28 Opioid HPI Opioid Management Most Recent Opioid Data: Last Pain Scale 6 09/10/24 16:52 09/10/24 Review of Systems ROS Narrative Negative unless otherwise stated in HPI PFSH PFSH Social History Little interest or pleasure in doing things: not at all Feeling down, depressed, or hopeless: not at all Exam Narrative Exam Narrative: General: NAD, AAOx3, no distress Eyes: PERRL, EOMI, lids/conjunctiva normal. HEENT: NCAT Respiratory: respiratory effort normal, speaks in full sentences, no tripod position, no accessory muscle use. Lungs clear to auscultation without rhonchi, wheezes, rales Cardiac: Regular rate and rhythm, no edema, regular s1/s2, 3 out of 6 holosystolic murmur consistent with mitral valve regurg Neuro: Speech is clear and appropriate. Normal level of consciousness. Gait and coordination are normal. 5/5 strength in all extremities. Constitutional Vital Signs, click to edit/add: Last Vital Signs Pulse 65 10/20/24 14:10 Resp 19 10/20/24 14:10 BP 123/69 10/20/24 14:00 Pulse Ox 100 10/20/24 14:10 O2 Del Method Room Air 10/20/24 11:44 Course Vital Signs Vital signs: Vital Signs Pulse Rate 79 10/20/24 11:28 Respiratory Rate 16 10/20/24 11:28 Blood Pressure 126/69 10/20/24 11:28 Pulse Oximetry 99 10/20/24 11:28 Oxygen Delivery Method Room Air 10/20/24 11:28 Pulse Rate 65 10/20/24 14:10 Respiratory Rate 19 10/20/24 14:10 Blood Pressure 123/69 10/20/24 14:00 Pulse Oximetry 100 10/20/24 14:10 Oxygen Delivery Method Room Air 10/20/24 11:44 Medical Decision Making [facility] Narrative Medical decision making narrative: Patient presenting to the emergency department for evaluation of above-stated complaint. Labs and imaging were noted. Patient with CARLEEN, initial hypotension. States he is not eating and drinking as well, presyncope. The patient presents with near syncope that is not suggestive of pulmonary embolus, cardiac ischemia, aortic dissection, Hypertrophic cardiomyopathy, or other serious etiology. Given the extremely low risk of these diagnoses further testing and evaluation for these possibilities does not appear to be indicated at this time. EKG shows no high risks features suggestive of conduction abnormality, such as long QT syndrome, Brugada syndrome, preexcitation syndrome, pericarditis or Hypertrophic cardiomyopathy . A 2 D ECHO can be done as outpatient. The patient has been instructed to return if the symptoms worsen or change in any way. Likely vasovagal in etiology. He has no neurologic, metabolic: hypoxia, hypoglycemia, hyperventilation, or psychiatric causes of syncope.No evidence of mechanical cardiac disease including aortic stenosis, mitral stenosis, pulmonary stenosis on exam. His EKG obtained showed no acute abnormalities. No evidence of sinus node dysfunction, AV conduction disease, tachyarrhythmia or Supraventricular arrhythmia. Observation was offered, she states she will do spoke to her channel rebuilder today, is going to make an appointment to be seen tomorrow, have her blood pressure meds reviewed, will maintain hydration Advanced guidance has been given. Vss, pex is benign at this time. Pt to fu with pcp 1-2 days for reeval, rter should sx worsen, persist or become worrysome in any way. Pt expressed understanding and agreement with plan of care at this time. Will fu as planned. Pt stable for discharge. Lab Data Labs: Lab Results 10/20/24 10/20/24 Range/Units 11:39 13:53 WBC 8.7 (4.0-11.0) 10^3/uL RBC 3.74 L (4.20-5.40) 10^6/uL Hgb 11.2 L (12.0-16.0) g/dL Hct 35.1 L (36.0-48.0) % MCV 93.9 (81.0-99.0) fL MCH 29.9 (26.7-34.0) pg MCHC 31.9 (29.9-35.2) g/dL RDW 14.7 (11.0-15.0) % Plt Count 358 (150-450) 10^3/uL MPV 10.4 (9.5-13.5) fL Neut % (Auto) 54.7 (43.0-75.0) % Lymph % (Auto) 32.3 (20.5-60.0) % Meigs % (Auto) 10.6 (1.7-12.0) % Eos % (Auto) 1.6 (0.9-7.0) % Baso % (Auto) 0.5 (0.2-2.0) % Neut # (Auto) 4.8 (1.4-6.5) 10^3/uL Lymph # (Auto) 2.8 (1.2-3.8) 10^3/uL Meigs # (Auto) 0.9 H (0.3-0.8) 10^3/uL Eos # (Auto) 0.1 (0.0-0.7) 10^3/uL Baso # (Auto) 0.0 (0.0-0.1) 10^3/uL Abs Immat Gran (auto) 0.03 (0.00-0.03) 10^3/uL Imm/Tot Granulo (auto) 0.3 (0.0-0.5) % PT 10.6 (9.0-11.6) sec INR 1.00 APTT 28.6 (22.3-36.2) sec Sodium 137 (136-145) mmol/L Potassium 3.8 (3.5-5.1) mmol/L Chloride 105 (98-107) mmol/L Carbon Dioxide 27.2 (21.0-32.0) mmol/L Anion Gap 8.6 BUN 26.0 H (7.0-18.0) mg/dL Creatinine 1.13 H (0.55-1.02) mg/dL Est GFR ( Amer) 59 L (>=60 mL/min/1.73m^2) Est GFR (Non-Af Amer) 49 L (>=60 mL/min/1.73m^2) BUN/Creatinine Ratio 23.0 Glucose 93 (74-106) mg/dL Calcium 9.1 (8.5-10.1) mg/dL Troponin I High Sens 4.0 <4.0 L (4.0-51.3) pg/mL Discharge Plan Discharge Chief Complaint: Dizziness Clinical Impression: Episodic lightheadedness, CARLEEN (acute kidney injury) Patient Disposition: Home, Self-Care Time of Disposition Decision: 14:27 Prescriptions / Home Meds: No Action carvedilol 25 mg tablet 25 mg PO QPM Rx Instructions: must administer with a meal/food rosuvastatin [Crestor] 20 mg tablet 20 mg PO .COMPLEX Rx Instructions: 20 mg orally every other day; trazodone 50 mg tablet 50 mg PO .qhs amlodipine 5 mg tablet 5 mg PO QDAY spironolactone 25 mg tablet 25 mg PO QDAY diclofenac sodium 75 mg tablet,delayed release (DR/EC) 75 mg PO QDAY valsartan 160 mg tablet 160 mg PO QDAY thyroid (pork) [Adthyza] 30 mg tablet 30 mg PO DAILY Print Language: [place] Citizen Instructions: Acute Kidney Injury (DC), Near Syncope (ED), Dizziness (ED) Additional Instructions: Follow-up with your PCP in the next 1 to 2 days. Return to the emergency de partment should symptoms worsen or become worrisome in any way. Referrals: Ines García MD [Primary Care Provider] - 1 week
[2024-10-20 11:56] LABS: Basophils Percent Auto 0.5 % (0.2-2.0); Eosinophils Absolute Auto 0.1 10^3/uL (0.0-0.7); Eosinophils Percent Auto 1.6 % (0.9-7.0); Hematocrit 35.1 % (36.0-48.0); Hemoglobin 11.2 g/dL (12.0-16.0); Immature Granulocytes Abs Auto 0.03 10^3/uL (0.00-0.03); Immature Granulocytes Pct Auto 0.3 % (0.0-0.5); Lymphocytes Absolute Auto 2.8 10^3/uL (1.2-3.8); Lymphocytes Percent Auto 32.3 % (20.5-60.0); Mean Corpuscular HGB Conc 31.9 g/dL (29.9-35.2); Mean Corpuscular Hemoglobin 29.9 pg (26.7-34.0); Mean Corpuscular Volume 93.9 fL (81.0-99.0); Mean Platelet Volume 10.4 fL (9.5-13.5); Monocytes Absolute Auto 0.9 10^3/uL (0.3-0.8); Monocytes Percent Auto 10.6 % (1.7-12.0); Neutrophils Absolute Auto 4.8 10^3/uL (1.4-6.5); Neutrophils Percent Auto 54.7 % (43.0-75.0); Platelet Count 358 10^3/uL (150-450); Red Blood Count 3.74 10^6/uL (4.20-5.40); Red Cell Distribution Width 14.7 % (11.0-15.0); White Blood Count 8.7 10^3/uL (4.0-11.0)
[2024-10-20 12:03] LABS: Partial Thromboplastin Time 28.6 sec (22.3-36.2); Prothrombin Time 10.6 sec (9.0-11.6)
[2024-10-20 12:07] LABS: Anion Gap 8.6; Calcium 9.1 mg/dL (8.5-10.1); Carbon Dioxide 27.2 mmol/L (21.0-32.0); Chloride 105 mmol/L (98-107); Estimated GFR (African America 59 (>=60 mL/min/1.73m^2); Estimated GFR (Non-African Ame 49 (>=60 mL/min/1.73m^2); Glucose 93 mg/dL (74-106); Potassium 3.8 mmol/L (3.5-5.1); Sodium 137 mmol/L (136-145)
[2024-10-20] MEDS: 0.9 % SODIUM CHLORIDE 1,000 ML 1000 ML IV (13:28)
[2024-10-20 14:18] LABS: Troponin I High Sensitivity <4.0 pg/mL (4.0-51.3)
== END 2024-10-20 14:48 | disposition home or self-care (01) ==
PROVIDERS: Emergency Provider Emergency Medicine; PCP Family Medicine
DX: N17.9 Acute kidney failure, unspecified (principal); R42 Dizziness and giddiness; I34.0 Nonrheumatic mitral (valve) insufficiency
CPT/HCPCS: 36415; 70450; 71045; 80048; 84484; 85025; 85610; 85730; 93005; 99285

== ENCOUNTER 2025-01-26 07:01 | Outpatient (OUT) | payer BC, SELFPAY ==
--- NOTE | 2025-01-26 07:03 | US_ITS ---
[address] [address] Patient Name: DANA MCGARRY MRN: [id number] date: 1965 Sex: F Assigned Patient Location: US Current Patient Location: US Accession/Order Number: [id number] Exam Date: 01/26/2025 10:54 Report Date: 01/26/2025 10:55 At the request of: CARMEN MCKEON MD Procedure: US renal BI BILATERAL RENAL AND BLADDER ULTRASOUND CLINICAL HISTORY: Cyst of left kidney COMPARISON: None FINDINGS: Estimation of renal size is approximately 10.2 cm on the right and 11.8 cm on the left. No hydronephrosis. Bilateral renal cysts. 3 mm stone left kidney. No solid mass. The urinary bladder is partially distended with a volume of 109 . ml. No shadowing stone or focal lesion US/US renal BI IMPRESSION: 3 MM STONE LEFT KIDNEY. NO HYDRONEPHROSIS. Impression dictated by: Enzo Lin Jr., D.O.01/26/2025 10:55 AM Dictation Location: [place] [address] Electronically authenticated by: [id number] Y Date: 01/26/2025 10:55
--- OUTSIDE RECORDS SUMMARY | 2025-01-26 07:03 | XMS_ITS | CCD ---
Author Organization [facility] Care Team Providers Care 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 Name Role Phone AWILDA, DR JORDAN Colbert [...] NONE LISTED Primary Care Unavaila ble TIMMIS, EDWIGE Admitting Unavailable TIMMIS, EDWIGE Attending Unavailable TIMMIS, EDWIGE Consulting Unavailable Zieber, Mike Consulting Unavailable DEBENEDETTI, DR JORDAN Colbert Consulting Unavaila ble REQUEST, NONE LISTED Primary Care Unavaila ble DEBENEDETTI, DR JORDAN Colbert Attending Unavaila ble DEBENEDETTI, DR JORDAN Colbert Admitting Unavaila ble REQUEST, NONE LISTED Primary Care Unavaila ble TIMMIS, EDWIGE Admitting Unavailable TIMMIS, EDWIGE Attending Unavailable TIMMIS, EDWIGE Consulting Unavailable Carlos, Mike Consulting Unavailable Ines Mckeon Unavailable Brooke Cha Unavailable [phone] EDWIGE CASTILLO H Attending Unavailable HAILEY GAY Attending Unavailab INES Mercado Referring Unavailable INES MCKEON Primary Care Unavailable Ines Mckeon MD Primary Care Provider SHAI HENDRICKS Attending Unavailable SHAI HENDRICKS Referring [...] INES MCKEON Primary Care Unavailable ROJAS VALENCIA Referring Unavailable INES MCKEON Primary Care Unavailable VICTOR HUGO HAILEY Referring Unavailab INES Mercado Primary Care Unavailable Ines Mckeon MD Primary Care Provider NARAHARISETTY, HAILEY Referring Unavailab INES Mercado Primary Care Unavailable ERICK GAYA Attending UnavailINES Houser Referring Unavailable INES MCKEON Primary Care Unavailable VICTOR HUGO, HAILEY Referring UnavailINES Houser Primary Care Unavailable Allergies Allergy Classification Reported Allergen(s) Allergy Type Date of Onset Reaction(s) Facility (1 source) bee venom Drug allergy (disorder) 1 [facility] Repository (14 sources) NIFEdipine; Translations: [NIFEDIPINE] Drug Allergy 1 Dizziness [facility] Repository (14 sources) BEE VENOM PROTEIN (HONEY BEE); Translations: [BEE VENOM PROTEIN (HONEY BEE)] Propensity to adverse reactions to drug (disorder) 9 [facility] Repository Medications Current Medications Medication Drug Class(es) Dates Sig (Normalized) Sig (Original) acetaminophen 325 mg / HYDROcodone bitartrate 5 mg oral tablet (3 sources) Opioid Agonist Start: 06-27-2023 take 1 tablet by mouth every six hours HYDROcodone-Acet aminophen 5-325 MG 1 tablet as needed Orally every 6 hrs for 7 days Jun, Active amLODIPine 5 mg oral tablet (14 sources) Dihydropyridine Calcium Channel Sapphire Start: 08-05-2024 take 1 tablet by mouth once daily Amlodipine 5 mg tablet Active 5 MG PO Daily August 05, 2024 12:00am Start: 03-05-2024 End: 03-31-2024 take 1 tablet by mouth in the morning amLODIPine (NORVASC) 10 mg tablet Take 1 tablet (10 mg total) by mouth in the morning. 90 tablet 3 04/01/2024 Active Start: 12-04-2023 End: 03-05-2024 take 1 tablet by mouth in the morning amLODIPine (NORVASC) 5 mg tablet Take 1 tablet (5 mg total) by mouth in the morning. 30 tablet 11 12/04/2023 03/05/2024 Discontinued amoxicillin 875 mg / clavulanate 125 mg oral tablet (2 sources) Penicillin-class Antibacterial Start: 06-07-2023 take 1 tablet by mouth every twelve hours Amoxicillin-Pot Clavulanate 875-125 MG 1 tablet Orally every 12 hrs for 10 days May, Active Ascorbic Acid (11 sources) Vitamin C ascorbic acid (VITAMIN C ORAL) Take by mouth daily. Active ascorbic acid (V ITAMIN C ORAL) Take by mouth daily. 0 Active carvedilol 25 mg oral tablet (20 sources) alpha-Adrenergic Sapphire, beta-Adrenergic Sapphire Start: 11-18-2023 take 2 tablets by mouth twice daily Carvedilol 25 mg tablet Active 25 MG PO Twice daily August 05, 2024 12:00am FreeTextSi tablets Oral twice a day; Note: Source Status: Taking; Refills: 3; Qty: 360 Tablet; Provider: JONATHAN GIRALDO take 1 tablet by alex th every twenty-four hours Carvedilol 25 MG 1 tablet Oral once a da y for 90 days Active take 1 tablet by mouth twice harper ly Carvedilol 12.5 MG TAKE 1 TABLET TWICE A DAY Oral for 90 Days Active cholecalciferol, vitamin D3, (VITAMIN D3 ORAL) (11 sources) cholecalciferol, vitamin D3, (VITAMIN D3 ORAL) Take by mouth daily. Active cholecalciferol, vitamin D3, (VITAMIN D3 ORAL) Take by mouth daily. 0 Active diclofenac sodium 75 mg delayed release oral tablet (20 sources) Nonsteroidal Anti-inflammatory Drug Start: 08-05-2024 End: 01-11-2025 take 1 tablet by mouth once daily as needed Diclofenac Sodium 75 mg tablet,delayed release (DR/EC) Active 75 MG PO Daily January 11, 2025 2:21pm FreeTextSi tablet as needed Orally daily; Note: Source Status: Taking; Refills: 3; Qty: 90 Tablet; Provider: Raquel Layton End: 12-04-2023 take 1 tablet by mouth in the morning diclofenac (VOLTAREN) 75 mg EC tablet Take 1 tablet (75 mg total) by mouth in the morning. 0 12/04/2023 Discontinued ergocalciferol 1.25 mg oral capsule (9 sources) Provitamin D2 Compound take 1 capsule by mouth once Vitamin D (Ergocalciferol) 39638 UNIT 1 capsule Orally Active hydroCHLOROthiazide 25 mg / triamterene 37.5 mg oral tablet (1 source) Potassium-sparing Diuretic, Thiazide Diuretic take 1 tablet by mouth once daily triamterene-hydrochlor othiazide (Maxzide-25) 37.5-25 MG tablet Take 1 tablet by mouth 1 (one) time each day at the same time Active hyoscyamine sulfate 0.125 mg oral tablet (20 sources) Start: 023 take 1 tablet by mouth every eight hours Hyoscyamine Sulfate 0.125 MG 1 tablet as needed Orally Three times a day for 10 days May, Active take 1 tablet by alex th every four hours as needed for pain hyoscyamine (ANASPAZ,LEVSIN) 0.125 mg ta blet Take 1 tablet (0.125 mg total) by mouth every 4 (four) hours as needed for cramping. Active loperamide hydrochloride 2 mg oral tablet (11 sources) Opioid Agonist take 1 tablet by mouth four times daily as needed for diarrhea loperamide (IMODIUM A-D) 2 mg tablet Take 1 tablet (2 mg total) by mouth 4 (four) times a day as needed for diarrhea. Active melatonin 5 mg oral tablet (12 sources) take 2 tablets by mouth once daily melatonin (CIRCADIN) 5 mg tablet Take 2 tablets (10 mg total) by mouth nightly. Active Multiple Vitamins-Minerals (multivitamin with minerals) tablet (1 source) take 1 tablet by mouth in the morning Multiple Vitamins-Minerals (multivitamin with minerals) tablet Take 1 tablet by mouth in the morning. Active Multivitamin (Daily Multi-Vitamin) tablet (3 sources) Start: take 1 tablet by mouth once daily Multivitamin (Daily Multi-Vitamin) tablet Active 1 TAB PO Daily August 04, 2024 11:00pm Start: 08-05-2024 take 1 tablet by alex th once daily Multivitamin (Daily Multi-Vitamin) tablet Active 1 TAB PO Daily August 05, 2024 12:00am MULTIVITAMIN ORAL (11 sources) MULTIVITAMIN ORA L Take by mouth daily. Active MULTIVITAMIN ORA L Take by mouth daily. 0 Active Multivitamin preparation (1 source) Multi Vitamin Ac tive mupirocin 0.02 mg/mg topical ointment (9 sources) RNA Synthetase Inhibitor Antibacterial Start: 06-07-20 Mupirocin 2 % 1 application Externally Twice a day for 5 days May, Active 24 hr NIFEdipine 60 mg extended release oral tablet (1 source) Dihydropyridine Calcium Channel Sapphire take 1 tablet by mouth once daily, then take 1 tablet by mouth every twenty-four hours NIFEdipine CC (Adalat CC) 60 MG 24 hr tablet Take 60 mg by mouth 1 (one) time each day at the same time Active rosuvastatin calcium 20 mg oral tablet (20 sources) HMG-CoA Reductase Inhibitor Start: 04-09-20 take 1 tablet by mouth once daily Rosuvastatin 20 mg tablet Active 1 TAB PO Daily August 05, 2024 12:00am FreeTextSi tablet Orally Once a day; Note: Source Status: Taking; Refills: 3; Qty: 90 Tablet; Provider: Raquel Layton Thyroid (Pork) (Mold Yarn Supervisor Thyroid) 30 mg tablet (2 sources) Start: 09-16-20 take 1 tablet by mouth once daily Thyroid (Pork) (Mold Yarn Supervisor Thyroid) 30 mg tablet Active 30 MG PO Daily September 16, 2024 1:00am Start: 09-16-2024 take 1 tablet by mouth once da emily Thyroid (Pork) (Mold Yarn Supervisor Thyroid) 30 mg tablet Active 30 MG PO Daily September 16, 2024 12:00am thyroid (senior living) 30 mg oral tablet (3 sources) Start: 09-10-2024 take 1 tablet by mouth in the morning thyroid, pork, (ARMOUR THYROID) 30 mg tablet Indications: Chela's thyroiditis Take 1 tablet (30 mg total) by mouth in the morning. 30 tablet 4 09/10/2024 Active traMADol hydrochloride 50 mg oral tablet (1 source) Opioid Agonist take 1 tablet by mouth once daily traMADol (Ultram) 50 MG tablet Take 50 mg by mouth 1 (one) time each day at the same time Active traZODone hydrochloride 50 mg oral tablet (9 sources) Serotonin Reuptake Inhibitor Start: 12-10-2024 take 1 tablet by mouth at bedtime as needed Trazodone 50 mg tablet Active 0 .ROUTE .COMPLEX December 10, 2024 4:20pm TAKE 1 TABLET BY MOUTH AT BEDTIME NEEDED Start: 08-05-2024 End: 12-10-2024 take 1 tablet by mouth once daily at bedtime as needed Trazodone 50 mg tablet Discontinued 50 MG PO Daily at bedtime as needed for insomnia October 06, 2024 4:17pm December 10, 2024 4:20pm valsartan 40 mg oral tablet (11 sources) Angiotensin 2 Receptor Sapphire Start: 08-05-2024 take 1 tablet by mouth twice daily Valsartan 40 mg tablet Active 40 MG PO Twice daily August 05, 2024 12:00am Start: 03-05-2024 End: 03-31-2024 take 1 tablet by mouth in the morning valsartan (DIOVAN) 160 mg tablet Take 1 tablet (160 mg total) by mouth in the morning. 90 tablet 3 04/01/2024 Active vitamin E acetate (VITAMIN E ORAL) (11 sources) vitamin E acetat e (VITAMIN E ORAL) Take by mouth daily. Active vitamin E acetat e (VITAMIN E ORAL) Take by mouth daily. 0 Active Completed/Discontinued Medications Medication Drug Class(es) Dates Sig (Normalized) Sig (Original) ALPRAZolam 0.25 mg oral tablet (13 sources) Benzodiazepine Start: 08-05-2024 End: 08-05-2024 take 1 tablet by mouth twice daily as needed Alprazolam 0.25 mg tablet Discontinued 1 TAB PO Twice daily August [...] day prn for 7 days Nov, Active levothyroxine sodium 0.05 mg oral tablet (20 sources) l-Thyroxine Start: 05-23-2019 End: 09-16-2024 take 1 tablet by mouth once daily Levothyroxine 50 mcg tablet Discontinued 50 MCG PO Daily August 04, 2024 4:56pm September 16, 2024 11:19am take 1 tablet by alex th once daily in the morning Levothyroxine Sodium 50 MCG 1 tablet in the morning on an empty stomach Orally Once a day for 90 days Active spironolactone 25 mg oral tablet (20 sources) Aldosterone Antagonist Start: 08-05-2024 End: 01-19-2025 take 1 tablet by mouth once daily Spironolactone 25 mg tablet Discontinued 25 MG PO Daily August 05, 2024 12:00am January 19, 2025 10:59am FreeTextSi tablet once a day; Note: Source [...] (Reorder) Spironolactone u nsure of dose Active tiZANidine 4 mg oral tablet (9 [...] (4 sources) Nonrheumatic aortic (valve) insufficiency; Translations: [Nonrheumatic mitral (valve) insufficiency] Onset: 09-07-2024 08-31-2024 Chronic Miscellaneous mental health disorders (9 sources) Acute insomnia; Translations: [Adjustment insomnia] Episodic Osteoarthritis (11 sources) Arthritis; Translations: [Unspecified osteoarthritis, unspecified site] [...] conditions (not mental disorders or infectious disease) (5 sources) Thyroid function tests abnormal; Translations: [Abnormal [...] the circulatory system] Episodic Residual codes; unclassified (2 sources) Insomnia; Translations: [Insomnia, unspecified] 08-05-2024 Episodic Residual codes; unclassified (1 source) Insomnia, unspecified; Translations: [Insomnia, unspecified] 08-05-2024 Episodic Skin and subcutaneous tissue infections (1 source) Cellulitis of head [any part, except face] Episodic Spondylosis; intervertebral disc disorders; other back problems (19 sources) Nerve root disorder; Translations: [Radiculopathy, site unspecified] Episodic Sprains and strains (1 source) Sprain of left ankle; Translations: [Sprain of unspecified ligament of left ankle, initial encounter] 09-16-2024 Episodic Thyroid disorders (20 sources) Nontoxic single thyroid nodule; Translations: [Non-toxic multinodular goiter] Onset: 11-11-2020 Resolved: 01-05-2025 Chronic Unclassified (1 source) New Patient Onset: 09-10-2024 Past or Other Problems Problem Classification Problem Date Documented Da te Episodic/Chronic Nonspecific chest pain (2 sources) Chest pain, unspecified; Translations: [Chest pain] Onset: 03-05-2024 03-05-2024 Episodic Residual codes; unclassified (1 source) Personal history of other specified conditions; Translations: [Personal history of other specified conditions] Onset: 09-07-2024 Episodic Residual codes; unclassified (11 sources) Other specified health status; Translations: [Other drug allergy] Onset: 11-02-2021 Resolved: 02-19-2022 02-19-2022 Episodic Residual codes; unclassified (1 source) History of chest pain; Translations: [Personal history of other specified conditions] 08-31-2024 Episodic Unclassified (1 source) PAD (peripheral artery disease) ([facility]) 09-07-2024 Results Test Name Value Interpretation Reference Range Facil ity Ultrasound thyroid w/wo biop syon 01-05-2025 [facility] Radiology Study observation (narrative) [facility] FREE T3on 12-11-2024 Free T3 [Mass/Vol] 3.31 pg/mL Normal 2.50-3.90 [facility] Comment on above: Performed By: #### 3 016-3, 3051-0, 3024-7 #### [facility] ([id number]) [address], [address] [place] [address] FREE T4on 12-11-2024 Free T4 [Mass/Vol] 0.69 ng/dL Normal 0.61-1.60 [facility] Comment on above: Performed By: #### 3 016-3, 3051-0, 3024-7 #### [facility] ([id number]) [address], [address] [place] [address] TSH Qnon 12-11-2024 TSH 0.47 uIU/mL Low 0.49-4.67 [facility] Comment on above: Performed By: #### 3 016-3, 3051-0, 3024-7 #### [facility] ([id number]) [address], [address] [place] [address] FREE T3on 09-10-2024 Free T3 [Mass/Vol] 4.15 pg/mL High 2.50-3.90 [facility] Comment on above: Performed By: #### 3 051-0, THYR, THYRAB #### [facility] ([id number]) [address], [address] [place] [address] Free T3 [Mass/Vol]on Interpretation and review of laboratory results Abnormal [facility] T3, freeon 09-10-2024 Free T3 [Mass/Vol] 4.15 pg/mL High 2.50 - 3. 90 pg/mL [facility] THYROID ANTIBODIESon Thyroglobulin Ab Qn [IU]/mL Normal <4.0 [facility] Comment on above: Performed By: #### 3 051-0, THYR, THYRAB #### [facility] ([id number]) [address], [address] [place] [address] TPO Ab Qn [IU]/mL Normal <10 [facility] Comment on above: Performed By: #### 3 051-0, THYR, THYRAB #### [facility] ([id number]) [address], [address] [place] [address] THYROID PROFILEon 09-10-2024 Free T4 [Mass/Vol] 1.06 ng/dL Normal 0.61-1.60 [facility] Comment on above: Performed By: #### 3 051-0, THYR, THYRAB #### [facility] ([id number]) [address], [address] [place] [address] TSH 0.18 uIU/mL Low 0.49-4.67 [facility] Comment on above: Performed By: #### 3 051-0, THYR, THYRAB #### [facility] ([id number]) [address] [place] [address] Thyroid antibodies includes TPO and TGABon 09-10-2024 Thyroglobulin Ab Qn [facility] TPO Ab Qn [facility] Thyroid profile includes TSH FT4on 09-10-2024 Free T4 [Mass/Vol] 1.06 ng/dL 0.61 - 1. 60 ng/dL [facility] Interpretation and review of laboratory results Abnormal [facility] TSH Qn 0.18 m[IU]/L Low [facility] Thyroid stimulating immunogl obulins Qn (S)on 09-10-2024 Thyroid-Stimulating Immunoglob, S <1.0 Normal <=1.3 [facility] Comment on above: Result Comment: NOTE Test Performed by: [facility] [address] [place] [address] Drier Tender: Caridad Patterson Ph.D.; CLIA# [id number] Performed By: #### 3 051-0, THYR, THYRAB #### [facility] ([id number]) [address], [address] [place] [address] BASIC METABOLIC PANLon 03-12 Anion gap [Moles/Vol] 9 mmol/L Normal 5-15 [facility] Comment on above: Performed By: #### C BCA, BMP, 93836-5 #### [facility] ([id number]) [address], [address] [place] [address] Calcium [Mass/Vol] 9.4 mg/dL Normal 8.5-10.5 [facility] Comment on above: Performed By: #### C ТАТЬЯНА OJEDA, 54659-5 #### [facility] ([id number]) [address], [address] [place] [address] Chloride [Moles/Vol] 106 mmol/L Normal 98-109 [facility] Comment on above: Performed By: #### ТАТЬЯНА Seaman BCA, 38006-3 #### [facility] ([id number]) [address], [address] [place] [address] CO2 [Moles/Vol] 28 mmol/L Normal 22-32 [facility] Comment on above: Performed By: #### ТАТЬЯНА Seaman BCA, 97854-4 #### [facility] ([id number]) [address], [address] [place] [address] Creatinine [Mass/Vol] 0.65 mg/dL Normal 0.40-1.00 [facility] Comment on above: Result Comment: METH OD TRACEABLE TO IDMS STANDARD Performed By: #### C ТАТЬЯНА OJEDA, 49900-5 #### [facility] ([id number]) [address], [address] [place] [address] eGFR (CKD-EPI) NON-RACE DEPENDENT >90 Normal >59 [facility] Comment on above: Result Comment: Reported eGFR is based on the CKD-EPI 2020 equation that does not use a race coefficient. Performed By: #### ТАТЬЯНА Seaman BCA, 87218-6 #### [facility] ([id number]) [address], [address] [place] [address] Glucose [Mass/Vol] 84 mg/dL Normal 65-99 [facility] Comment on above: Performed By: #### ТАТЬЯНА Seaman BCA, 46864-2 #### [facility] ([id number]) [address], [address] [place] [address] Potassium [Moles/Vol] 4.1 mmol/L Normal 3.5-5.0 [facility] Comment on above: Performed By: #### ТАТЬЯНА Seaman BCA, 20932-0 #### [facility] ([id number]) [address], [address] [place] [address] Sodium [Moles/Vol] 143 mmol/L Normal 134-146 [facility] Comment on above: Performed By: #### ТАТЬЯНА Seaman BCA, 11344-9 #### [facility] ([id number]) [address], [address] [place] [address] Urea nitrogen [Mass/Vol] 20 mg/dL Normal 5-23 [facility] Comment on above: Performed By: #### ТАТЬЯНА Seaman BCA, 52184-3 #### [facility] ([id number]) [address], [address] [place] [address] CBC AND AUTO DIFFon 03-12-20 24 ABSOLUTE BASOPHIL 0.1 X10E9/L Normal 0.0-0.2 [facility] Comment on above: Performed By: #### ТАТЬЯНА Seaman BCA, 53610-0 #### [facility] ([id number]) [address], [address] [place] [address] ABSOLUTE NEUTROPHIL 4.0 X10E9/L Normal 1.5-6.6 [facility] Comment on above: Performed By: #### ТАТЬЯНА Seaman BCA, 31964-0 #### [facility] ([id number]) [address], [address] [place] [address] Basophils/100 WBC (Bld) 0.9 % Normal [facility] Comment on above: Performed By: #### ТАТЬЯНА Seaman BCA, 16740-9 #### [facility] ([id number]) [address], [address] [place] [address] Eosinophils (Bld) [#/Vol] 0.2 10*3/uL Normal 0.0-0.4 [facility] Comment on above: Performed By: #### C ТАТЬЯНА OJEDA, 01886-4 #### [facility] ([id number]) [address], [address] [place] [address] Eosinophils/100 WBC (Bld) 2.7 % Normal [facility] Comment on above: Performed By: #### ТАТЬЯНА Seaman BCA, 30080-1 #### [facility] ([id number]) [address], [address] [place] [address] Erythrocyte distribution width (RBC) [Ratio] 15.8 % High 11.5-15.0 [facility] Comment on above: Performed By: #### ТАТЬЯНА Seaman BCA, 39505-5 #### [facility] ([id number]) [address], [address] [place] [address] Hematocrit (Bld) [Volume fraction] 37.9 % Normal 35-47 [facility] Comment on above: Performed By: #### ТАТЬЯНА Seaman BCA, 44097-9 #### [facility] ([id number]) [address] [facility] [address] [address] [place] [address] Hemoglobin (Bld) [Mass/Vol] 12.6 g/dL Normal 11.7-15.5 [facility] Comment on above: Performed By: #### ТАТЬЯНА Seaman BCA, 76338-2 #### [facility] ([id number]) [address] [place] [address] Lymphocytes (Bld) [#/Vol] 2.2 10*3/uL Normal 1.0-3.5 [facility] Comment on above: Performed By: #### ТАТЬЯНА Seaman BCA, 43832-1 #### [facility] ([id number]) [address], [address] [place] [address] Lymphocytes/100 WBC (Bld) 30.6 % Normal [facility] Comment on above: Performed By: #### ТАТЬЯНА Seaman BCA, 29771-4 #### [facility] ([id number]) [address], [address] [place] [address] MCH (RBC) [Entitic mass] 30.3 pg Normal 27-34 [facility] Comment on above: Performed By: #### Jurgen OJEDA BMP, 26778-0 #### [facility] ([id number]) [address], [address] [place] [address] MCHC (RBC) [Mass/Vol] 33.3 g/dL Normal 32-36 [facility] Comment on above: Performed By: #### Jurgen OJEDA BMP, 05489-3 #### [facility] ([id number]) [address] [place] [address] MCV (RBC) [Entitic vol] 91 fL Normal 80-100 [facility] Comment on above: Performed By: #### ТАТЬЯНА Seaman BCA, 01983-5 #### [facility] ([id number]) [address], [address] [place] [address] Monocytes (Bld) [#/Vol] 0.8 10*3/uL Normal 0-0.9 [facility] Comment on above: Performed By: #### ТАТЬЯНА Seaman BCA, 65029-8 #### [facility] ([id number]) [address], [address] [place] [address] Monocytes/100 WBC (Bld) 10.4 % Normal [facility] Comment on above: Performed By: #### Jurgen OJEDA, BMP, 92518-8 #### [facility] ([id number]) [address] [place] [address] Neutrophils/100 WBC (Bld) 55.4 % Normal [facility] Comment on above: Performed By: #### Jurgen OJEDA, BMP, 44547-7 #### [facility] ([id number]) [address] [place] [address] Platelet mean volume (Bld) [Entitic vol] 9.1 fL Normal 7-12 [facility] Comment on above: Performed By: #### ТАТЬЯНА Seaman BCA, 49030-6 #### [facility] ([id number]) [address] [place] [address] Platelets (Bld) [#/Vol] 361 10*3/uL Normal 150-450 [facility] Comment on above: Performed By: #### ТАТЬЯНА Seaman BCA, 59463-7 #### [facility] ([id number]) [address] [facility] [address] [place] [address] RBC COUNT 4.17 X10E12/L Normal 3.80-5.20 [facility] Comment on above: Performed By: #### ТАТЬЯНА Seaman BCA, 66491-5 #### [facility] ([id number]) [address] [address] WBC (Bld) [#/Vol] 7.3 10*3/uL Normal 4.0-11.0 [facility] Comment on above: Performed By: #### ТАТЬЯНА Seaman BCA, 14223-7 #### [facility] ([id number]) [address] [facility] [address] [place] [address] Lipid 1996 panelon 4 Cholesterol [Mass/Vol] 154 mg/dL Normal 150-200 [facility] Comment on above: Performed By: #### ТАТЬЯНА Seaman BCA, 41920-4 #### [facility] ([id number]) [address] [facility] [address] [place] [address] Cholesterol in HDL [Mass/Vol] 45 mg/dL Normal >39 [facility] Comment on above: Result Comment: HDL <40 mg/dL - High Risk HDL > or = 40mg/dL- Desirable HDL >60 mg/dL - Negative Risk Performed By: #### ТАТЬЯНА Seaman BCA, 94109-2 #### [facility] ([id number]) [address] [place] [address] Cholesterol in LDL [Mass/Vol] 87 mg/dL Normal <130 [facility] Comment on above: Result Comment: LDL <100 mg/dL - Desirable LDL >160 mg/dL - High Risk Performed By: #### ТАТЬЯНА Seaman BCA, 38498-4 #### [facility] ([id number]) [address] [place] [address] Cholesterol in VLDL [Mass/Vol] 22 mg/dL Normal 0-30 [facility] Comment on above: Performed By: #### ТАТЬЯНА Seaman BCA, 85747-5 #### [facility] ([id number]) [address] [place] [address] CHOLESTEROL:HDL 3.4 Normal 1.0-5.0 [facility] Comment on above: Performed By: #### ТАТЬЯНА Seaman BCA, 02670-9 #### [facility] ([id number]) [address] [facility] [address] [place] [address] Triglyceride [Mass/Vol] 112 mg/dL Normal 27-150 [facility] Comment on above: Performed By: #### ТАТЬЯНА Seaman BCA, 11358-1 #### [facility] ([id number]) [address] [facility] [address] [place] [address] POCT EKGOrdered By: Shyla plummer on 03-05-2024 [facility] US THYROIDon 11-16-2022 US THYROID EXAMINATION: US [...] needle aspiration (FNA). Electronically authenticated by: MIKE COLORADO Date: 2022-11-16 11:23 Normal [facility] PROF CHEM 8 (BAS METB)on Anion gap [Moles/Vol] 13.7 mmol/L Normal [facility] Comment on above: Performed By: #### B MP #### [facility] [address] [address] [address] Maritza Bush Calcium [Mass/Vol] 9.1 mg/dL Normal 8.5-10.1 [facility] Comment on above: Performed By: #### B MP #### [facility] [address] [address] [address] Maritza Bush Chloride [Moles/Vol] 106 mmol/L Normal 98-107 [facility] Comment on above: Performed By: #### B MP #### [facility] [address] [address] [address] Maritza Bush CO2 [Moles/Vol] 24.6 mmol/L Normal 21.0-32.0 [facility] Comment on above: Performed By: #### B MP #### [facility] [address] [address] [address] Maritza Bush Creatinine [Mass/Vol] 0.90 mg/dL Normal 0.55-1.02 [facility] Comment on above: Performed By: #### B MP #### [facility] [address] [address] [address] Maritza Bush EGFR-AF [place] >60 Normal >=60 [facility] Comment on above: Performed By: #### B MP #### [facility] [address] [address] [address] Maritza Bush EGFR-NON AF [place] ISLANDER >60 Normal >=60 [facility] Comment on above: Performed By: #### B MP #### [facility] [address] [address] [address] Maritza Bush Glucose [Mass/Vol] 104 mg/dL Normal 74-106 [facility] Comment on above: Performed By: #### B MP #### [facility] [address] [address] [address] Maritza Bush Potassium [Moles/Vol] 4.3 mmol/L Normal 3.5-5.1 [facility] Comment on above: Performed By: #### B MP #### [facility] [address] [address] [address] Maritza Bush Sodium [Moles/Vol] 140 mmol/L Normal 136-145 [facility] Comment on above: Performed By: #### B MP #### [facility] [address] [address] [address] Maritza Bush Urea nitrogen [Mass/Vol] 21.0 mg/dL Critically high 7.0-18.0 [facility] Comment on above: Performed By: #### B MP #### [facility] [address] [address] [address] Maritza Bush Urea nitrogen/Creatinine [Mass ratio] 23.3 mg/mg Normal [facility] Comment on above: Performed By: #### B MP #### [facility] [address] [place] [address] Dr. Maritza Bush US THYROIDon 05-18-2022 US [...] Otherwise stable thyroid gland. TR 5: [employer] TI-RADS committee's white paper recommendations for thyroid lesions classified as TR5 (highly suspicious) are listed below: > 0.5 cm. Annual ultrasound follow-up for up to 5 years. > 1.0 cm. FNA. J. Am Maeve Radiol 2017;14:587-595. TR 4: [employer] TI-RADS committee's white paper recommendations for thyroid lesions classified as TR4 (moderately suspicious) are listed below: > 1.0 cm. Follow-up ultrasound in 1, 2, 3, and 5 years. > 1.5 cm. FNA. J. Am Maeve Radiol 2017;14:587-595. Electronically authenticated by: MIKE COLORADO Date: 2022-05-18 16:38 Normal [facility] PROF CHEM 8 (BAS METB)on Anion gap [Moles/Vol] 12.5 mmol/L Normal [facility] Comment on above: Performed By: #### B MP #### [facility] [address] [place] [address] Dr. Maritza Bush Calcium [Mass/Vol] 9.0 mg/dL Normal 8.5-10.1 [facility] Comment on above: Performed By: #### B MP #### [facility] [address] [address] [address] Maritza Bush Chloride [Moles/Vol] 109 mmol/L Critically high 98-107 [facility] Comment on above: Performed By: #### B MP #### [facility] [address] [address] [address] Maritza Bush CO2 [Moles/Vol] 27.4 mmol/L Normal 21.0-32.0 [facility] Comment on above: Performed By: #### B MP #### [facility] [address] [address] [address] Maritza Bush Creatinine [Mass/Vol] 0.69 mg/dL Normal 0.55-1.02 [facility] Comment on above: Performed By: #### B MP #### [facility] [address] [address] [address] Maritza Bush EGFR-AF [place] >60 Normal >=60 [facility] Comment on above: Performed By: #### B MP #### [facility] [address] [address] [address] Maritza Bush EGFR-NON AF [place] >60 Normal >=60 [facility] Comment on above: Performed By: #### B MP #### [facility] [address] [address] [address] Maritza Bush Glucose [Mass/Vol] 111 mg/dL Critically high 74-106 [facility] Comment on above: Performed By: #### B MP #### [facility] [address] [address] [address] Maritza Bush Potassium [Moles/Vol] 3.9 mmol/L Normal 3.5-5.1 [facility] Comment on above: Performed By: #### B MP #### [facility] [address] [address] [address] Maritza Bush Sodium [Moles/Vol] 145 mmol/L Normal 136-145 [facility] Comment on above: Performed By: #### B MP #### [facility] [address] [address] [address] Maritza Bush Urea nitrogen [Mass/Vol] 20.0 mg/dL Critically high 7.0-18.0 [facility] Comment on above: Performed By: #### B MP #### [facility] [address] [address] [address] Maritza Bush Urea nitrogen/Creatinine [Mass ratio] 29.0 mg/mg Normal [facility] Comment on above: Performed By: #### B MP #### [facility] [address] [address] [address] Maritza Bush PROF CHEM 8 (BAS METB)on Anion gap [Moles/Vol] 13.0 mmol/L Normal [facility] Comment on above: Performed By: #### B MP #### [facility] [address] [address] [address] Maritza Bush Calcium [Mass/Vol] 9.1 mg/dL Normal 8.5-10.1 [facility] Comment on above: Performed By: #### B MP #### [facility] [address] [address] [address] Maritza Bush Chloride [Moles/Vol] 104 mmol/L Normal 98-107 [facility] Comment on above: Performed By: #### B MP #### [facility] [address] [place] [address] Dr. Maritza Bush CO2 [Moles/Vol] 27.9 mmol/L Normal 22.0-30.0 [facility] Comment on above: Performed By: #### B MP #### [facility] [address] [place] [address] Dr. Maritza Bush Creatinine [Mass/Vol] 0.75 mg/dL Normal 0.52-1.04 [facility] Comment on above: Performed By: #### B MP #### [facility] [address] [place] [address] Dr. Maritza Bush EGFR-AF [place] >60 Normal >=60 [facility] Comment on above: Performed By: #### B MP #### [facility] [address] [place] [address] Dr. Maritza Bush EGFR-NON AF [place] >60 Normal >=60 [facility] Comment on above: Performed By: #### B MP #### [facility] [address] [place] [address] Dr. Maritza Bush Glucose [Mass/Vol] 94 mg/dL Normal 74-106 [facility] Comment on above: Performed By: #### B MP #### [facility] [address] [address] [address] Maritza Bush Potassium [Moles/Vol] 3.9 mmol/L Normal 3.4-5.0 [facility] Comment on above: Performed By: #### B MP #### [facility] [address] [address] [address] Maritza Bush Sodium [Moles/Vol] 141 mmol/L Normal 137-145 [facility] Comment on above: Performed By: #### B MP #### [facility] [address] [address] [address] Maritza Bush Urea nitrogen [Mass/Vol] 23.0 mg/dL Critically high 7.0-18.0 [facility] Comment on above: Performed By: #### B MP #### [facility] [address] [address] [address] Maritza Bush Urea nitrogen/Creatinine [Mass ratio] 30.7 mg/mg Normal [facility] Comment on above: Performed By: #### B MP #### [facility] [address] [address] [address] Maritza Bush Vital Signs Date Time Vital Sign Value Performing Clinician Star dotson 01-19-2025 10:41-0400 Body height 160.02 cm [facility] 01-19-2025 10:41-0400 Body mass index (BMI) [Ratio] 24.3 kg/m2 [facility] 01-19-2025 10:41-0400 Body weight 62.14 kg [facility] 01-19-2025 10:41-0400 Diastolic blood pressure 83 mm[Hg] [facility] 01-19-2025 10:41-0400 Heart rate 62 /min [facility] 01-19-2025 10:41-0400 Systolic blood pressure 125 mm[Hg] [facility] 01-05-2025 12:23-0500 Body mass index (BMI) [Ratio] 24.27 kg/m2 Hailey Gay MD Work Phone: [employer] 01-05-2025 12:23-0500 Body weight 62.14 kg Hailey smith MD Work Phone: [facility] 01-05-2025 12:23-0500 Diastolic blood pressure 93 mm[Hg] Hailey Gay MD Work Phone: [facility] 01-05-2025 12:23-0500 Heart rate 71 /min Hailey smith MD Work Phone: [facility] 01-05-2025 12:23-0500 Systolic blood pressure 162 mm[Hg] Hailey Gay MD Work Phone: [facility] 09-16-2024 10:18-0500 Body height 160.02 cm [facility] 09-16-2024 10:18-0500 Body mass index (BMI) [Ratio] 23.9 kg/m2 [facility] 09-16-2024 10:18-0500 Body weight 61.23 kg [facility] 09-16-2024 10:18-0500 Diastolic blood pressure 71 mm[Hg] [facility] 09-16-2024 10:18-0500 Heart rate 69 /min [facility] 09-16-2024 10:18-0500 Systolic blood pressure 112 mm[Hg] [facility] 09-10-2024 12:45-0400 Body mass index (BMI) [Ratio] 23.98 kg/m2 Hailey Gay MD Work Phone: [facility] 09-10-2024 12:45-0400 Body weight 61.41 kg Hailey smith MD Work Phone: [facility] 09-10-2024 12:45-0400 Diastolic blood pressure 82 mm[Hg] Hailey Gay MD Work Phone: [facility] 09-10-2024 12:45-0400 Heart rate 69 /min Hailey smith MD Work Phone: [facility] 09-10-2024 12:45-0400 Systolic blood pressure 132 mm[Hg] Hailey Gay MD Work Phone: [facility] 09-07-2024 07:58-0400 Body height 160 cm Rojas Valencia MD Work Phone: [facility] 09-07-2024 07:58-0400 Body mass index (BMI) [Ratio] 24.09 kg/m2 Rojas Valencia MD Work Phone: [facility] 09-07-2024 07:58-0400 Body weight 61.69 kg Rojas Valencia MD Work Phone: [facility] 09-07-2024 07:58-0400 Diastolic blood pressure 86 mm[Hg] Rojas Valencia MD Work Phone: [facility] 09-07-2024 07:58-0400 Heart rate 72 /min Rojas Valencia MD Work Phone: [facility] 09-07-2024 07:58-0400 Systolic blood pressure 130 mm[Hg] Rojas Valencia MD Work Phone: [facility] 08-05-2024 09:01-0400 Body height 160.02 cm [facility] 08-05-2024 09:01-0400 Body mass index (BMI) [Ratio] 24 kg/m2 [facility] 08-05-2024 09:01-0400 Body weight 61.68 kg [facility] 08-05-2024 09:01-0400 Diastolic blood pressure 77 mm[Hg] [facility] 08-05-2024 09:01-0400 Heart rate 69 /min [facility] 08-05-2024 09:01-0400 Systolic blood pressure 116 mm[Hg] [facility] 03-05-2024 07:48-0400 Body height 160 cm Elisa Minor MD Work Phone: [facility] 03-05-2024 07:48-0400 Body mass index (BMI) [Ratio] 24.27 kg/m2 Elisa Minor MD [facility] Phone[facility] 03-05-2024 07:48-0400 Body weight 62.14 kg Elisa Minor MD Work Phone: [facility] [employer] 03-05-2024 07:48-0400 Diastolic blood pressure 100 mm[Hg] Elisa Minor MD Work Phone: [facility] [employer] 03-05-2024 07:48-0400 Heart rate 72 /min Elisa Minor MD [facility] Phone[facility] 03-05-2024 07:48-0400 SaO2% (BldA) [Mass fraction] 100 % Elisa Minor MD Work Phone: [facility] [employer] 03-05-2024 07:48-0400 Systolic blood pressure 160 mm[Hg] Elisa Minor MD Work Phone: [facility] [employer] 12-04-2023 13:41-0500 Body height 160 cm Shai Hendricks MD Work Phone: [facility] 12-04-2023 13:41-0500 Body mass index (BMI) [Ratio] 24.09 kg/m2 Shai Hendricks MD Work Phone: [facility] [employer] 12-04-2023 13:41-0500 Body weight 61.69 kg Shai Hendricks MD Work Phone: [facility] [employer] 12-04-2023 13:41-0500 Diastolic blood pressure 100 mm[Hg] Shai Hendricks MD Work Phone: [facility] 12-04-2023 13:41-0500 Heart rate 61 /min Shai Hendricks MD Work Phone: [facility] 12-04-2023 13:41-0500 SaO2% (BldA) [Mass fraction] 97 % Shai Hendricks MD Work Phone: [facility] 12-04-2023 13:41-0500 Systolic blood pressure 190 mm[Hg] Shai Hendricks MD Work Phone: [employer] 11-28-2023 15:00-0500 Body height 160.02 cm Ines Mckeon Other [employer] Other 11-28-2023 15:00-0500 Body mass index (BMI) [Ratio] 24.55 kg/m2 Ines Mckeon Other [employer] Other 11-28-2023 15:00-0500 Body weight 62.87 kg Ines Mckeon Other [employer] Other 11-28-2023 15:00-0500 Diastolic blood pressure 88 mm[Hg] Ines Mckeon Other [employer] Other 11-28-2023 15:00-0500 Systolic blood pressure 144 mm[Hg] Ines Mckeon Other [employer] Other 06-27-2023 10:00-0400 Body height 160.02 cm Ines Mckeon Other [employer] Other 06-27-2023 10:00-0400 Body mass index (BMI) [Ratio] 24.27 kg/m2 Ines Mckeon Other [employer] Other 06-27-2023 10:00-0400 Body weight 62.14 kg Ines Mckeon Other [employer] Other 06-27-2023 10:00-0400 Diastolic blood pressure 82 mm[Hg] Ines Mckeon Other [employer] Other 06-27-2023 10:00-0400 SaO2% (BldA) [Mass fraction] 98 % Ines Mckeon Other [employer] Other 06-27-2023 10:00-0400 Systolic blood pressure 148 mm[Hg] Ines Mckeon Other [employer] Other 06-24-2023 15:30-0400 Body height 160.02 cm Ines Mckeon Other [employer] Other 06-24-2023 15:30-0400 Body mass index (BMI) [Ratio] 24.27 kg/m2 Ines Mckeon Other [employer] Other 06-24-2023 15:30-0400 Body weight 62.14 kg Ines Mckeon Other [employer] Other 06-24-2023 15:30-0400 Diastolic blood pressure 100 mm[Hg] Ines Mckeon Other [employer] Other 06-24-2023 15:30-0400 SaO2% (BldA) [Mass fraction] 99 % Ines Mckeon Other [employer] Other 06-24-2023 15:30-0400 Systolic blood pressure 164 mm[Hg] Ines Mckeon Other [employer] Other 06-07-2023 11:15-0400 Body height 160.02 cm Brooke Cha Other [employer] Other 06-07-2023 11:15-0400 Body mass index (BMI) [Ratio] 23.91 kg/m2 Brooke Cha Other [employer] Other 06-07-2023 11:15-0400 Body weight 61.24 kg Brooke Cha Other [employer] Other 06-07-2023 11:15-0400 Diastolic blood pressure 96 mm[Hg] Brooke Ferreiratia Other [employer] Other 06-07-2023 11:15-0400 Systolic blood pressure 158 mm[Hg] Brooke Hernandezjanetita Other [employer] Other Encounters Encounter Date Encounter Type Care Provider Facility Start: 01-19-2025 End: 01-19-2025 ambulatory [facility] Work Phone: Start: 01-19-2025 End: 01-19-2025 Patient encounter procedure [facility] Work Phone: Start: 01-06-2025 End: 01-06-2025 Telephone encounter Kenzie Gregg RN [facility] Start: 01-05-2025 End: 01-05-2025 Office outpatient visit 25 minutes Hailey Gay MD Work Phone: [facility] Adult Endocrinology, A Department of [facility] Comment on above: Acquired hypothyroid ism (Primary Dx); Nontoxic nodular goiter Start: 01-05-2025 End: 01-09-2025 [facility] Start: 12-11-2024 End: 12-11-2024 ambulatory [facility] Start: 10-13-2024 End: 10-13-2024 Telephone encounter Dee Dee Quarles MA [facility] Start: 09-17-2024 End: 09-17-2024 ambulatory [facility] Start: 09-16-2024 End: 09-16-2024 ambulatory [facility] Work Phone: Start: 09-16-2024 End: 09-16-2024 Patient encounter procedure [facility] Work Phone: Start: 09-11-2024 Non-patient / Non-visit [facility] Work Phone: Start: 09-10-2024 End: 09-10-2024 Office consultation new/estab patient 60 min Hailey Gay MD Work Phone: [facility] Comment on above: Chela's thyroidi tis (Primary Dx); Nontoxic nodular goiter Start: 09-10-2024 End: 09-10-2024 [facility] Start: 09-07-2024 End: 09-07-2024 Office outpatient visit 25 minutes Rojas Valencia MD Work Phone: [facility] Comment on above: Hx of chest pain (Pr imary Dx); Essential hypertension; Mild aortic regurgitation; Mild mitral regurgitation; Hyperlipidemia, unspecified hyperlipidemia type; PAD (peripheral artery disease) ([facility] Start: 09-07-2024 End: 09-07-2024 [facility] Start: 09-04-2024 End: 09-04-2024 [facility] Start: 08-05-2024 End: 08-05-2024 ambulatory [facility] Work Phone: Start: 08-05-2024 End: 08-05-2024 Patient encounter procedure [facility] Work Phone: Start: 03-31-2024 End: 04-01-2024 [facility]ill [facility] Comment on above: Med Refill Start: 03-12-2024 End: 03-12-2024 ambulatory [facility] Start: 03-12-2024 End: 03-12-2024 [facility] Start: 03-05-2024 End: 03-05-2024 Office outpatient visit 25 minutes Elisa Minor MD Work Phone: [facility] Comment on above: Essential hypertensi on (Primary Dx); Chest pain, unspecified type Start: 03-05-2024 End: 03-05-2024 ambulatory ELISA MINOR [facility] Start: 03-04-2024 End: 03-04-2024 Telephone encounter [facility] Start: 01-09-2024 End: 01-09-2024 ambulatory SHAI HENDRICKS [facility] Start: 12-04-2023 End: 12-04-2023 Office outpatient new 60 minutes Shai Hendricks MD Work Phone: [facility] Comment on above: Essential hypertensi on (Primary Dx); Mixed hyperlipidemia Start: 12-03-2023 Telephone encounter Brooke Padilla [facility] Start: 11-28-2023 End: 11-28-2023 ambulatory Ines Mckeon Other [employer] Other Start: 11-28-2023 Office outpatient vi sit 15 minutes Ines Mckeon [facility] Start: 11-26-2023 End: 11-26-2023 ambulatory EDWIGE Odell TIMMIS Not Available Start: 11-18-2023 Telephone encounter Kenzie Gregg RN [facility] Comment on above: Hypertension Start: 08-28-2023 End: 08-28-2023 ambulatory Ines Mckeon Other [employer] Other Start: 08-28-2023 Telephone encounter Ines Mckeon [facility] Start: 07-31-2023 End: 07-31-2023 ambulatory Ines Mckeon Other [employer] Other Start: 07-31-2023 Telephone encounter Ines Mckeon [facility] Start: 06-27-2023 End: 06-27-2023 ambulatory Ines Mckeon Other [employer] Other Start: 06-27-2023 Office outpatient vi sit 15 minutes Ines Mckeon [facility] Start: 06-25-2023 End: 06-25-2023 ambulatory Ines Mckeon Other [employer] Other Start: 06-25-2023 Telephone encounter Ines Raquel [facility] Start: 06-24-2023 End: 06-24-2023 ambulatory Ines Raquel Other [employer] Other Start: 06-24-2023 Encounter for genera l adult medical examination without abnormal findings Ines Raquel [facility] Start: 06-24-2023 Periodic preventive med est patient 40-64yrs Ines Raquel [facility] Start: 06-24-2023 Telephone encounter Ines Raquel [facility] Start: 06-07-2023 End: 06-07-2023 ambulatory Ines Raquel Other [employer] Other Start: 06-07-2023 Office outpatient vi sit 15 minutes Brooke Cha [facility] Start: 06-07-2023 Telephone encounter Ines Mckeon [facility] Start: 11-16-2022 End: 11-17-2022 ambulatory NONE LISTED REQUEST Facility:[facility] Start: 05-22-2022 End: 05-23-[address] JORDAN KAISER Facility:[facility] Start: 05-18-2022 End: 05-19-2022 ambulatory NONE LISTED REQUEST Facility:H1 Start: 03-28-2022 End: 03-29-[address] JORDAN KAISER Facility:[facility]1 Start: 03-02-2022 End: 03-03-[address] JORDAN KAISER Facility:[facility]1 Start: 10-04-2021 Adult health examination Ines Raquel Other [employer] Other Procedures Date Procedure Procedure Detail Performing Clinician Start: 01-05-2025 AMB THYROID W/WO BIOPSY Hailey Gay MD Work Phone: Start: 03-05-2024 Ecg routine ecg w/le ast 12 lds w/i&r Elisa Minor MD Work Phone: Start: 03-05-2024 Follow-up visit Follow-up ELISA D MILY Plan of Treatment Date Care Activity Detail Author Start: 01-11-2026 End: 01-11-2026 ambulatory 01/11/2026 10:30 AM EST Office Ultrasound [facility], A Department of [facility] [address] [place] [address] Hailey Gay MD [address] [place] [address] [facility] Adult Endocrinology, A Department of [facility] Start: 01-05-2026 Adult BMI Screening Adult BMI Screening [facility] Start: 01-05-2026 Tobacco Screening Tobacco Screening [facility] Start: 09-10-2025 Adult BMI Screening Adult BMI Screening [facility] Start: 09-10-2025 Tobacco Screening Tobacco Screening [facility] Start: 09-07-2025 Adult BMI Screening Adult BMI Screening [facility] Start: 09-07-2025 Tobacco Screening Tobacco Screening [facility] Start: 03-12-2025 Adult BMI Screening Adult BMI Screening [facility] Start: 03-12-2025 Tobacco Screening Tobacco Screening [facility] Start: 03-05-2025 Adult BMI Screening Adult BMI Screening [facility] Start: 03-05-2025 Tobacco Screening Tobacco Screening [facility] Start: 03-02-2025 End: 03-02-2025 Patient encounter procedure 03/02/2025 10:00 AM EDT Office Visit [facility] [address] [place] [address] Sharon Carlos MD [address] [place] [address] [facility] Start: 01-08-2025 Adult BMI Screening Adult BMI Screening [facility] Start: 01-05-2025 End: 01-05-2025 ambulatory 01/05/2025 12:30 PM EST Office Ultrasound [facility] Adult Endocrinology [address] [place] [address] Hailey Gay MD [address] [facility] [place] [address] [facility] Adult [facility] Start: 12-11-2024 End: 09-10-2025 Thyrotropin [Units/volume] in Serum or Plasma TSH Lab Routine Chela's thyroiditis Expected: 12/11/2024 (Approximate), Expires: 09/10/2025 [facility] Work Phone: Comment on above: Expected: 12/11/2024 (Approximate), Expi res: 09/10/2025 Start: 12-11-2024 End: 09-10-2025 Thyroxine (T4) free [Mass/volume] in Serum or Plasma T4, free Lab Routine Chela's thyroiditis Expected: 12/11/2024 (Approximate), Expires: 09/10/2025 [facility] Comment on above: Expected: 12/11/2024 (Approximate), Expi res: 09/10/2025 Start: 12-11-2024 End: 09-10-2025 Triiodothyronine (T3) Free [Mass/volume] in Serum or Plasma T3, free Lab Routine Chela's thyroiditis Expected: 12/11/2024 (Approximate), Expires: 09/10/2025 [facility] Comment on above: Expected: 12/11/2024 (Approximate), Expi res: 09/10/2025 Start: 12-04-2024 Adult BMI Screening Adult BMI Screening [facility] Start: 12-04-2024 Tobacco Screening Tobacco Screening [facility] Start: 09-17-2024 End: 09-17-2024 Patient encounter procedure 09/17/2024 8:30 AM EST Appointment [facility] [address] [place] [address] [facility] Start: 09-10-2024 End: 09-10-2024 Patient encounter procedure 09/10/2024 1:00 PM EDT Office Visit [facility] [address] [place] [address] Hailey Gay MD [address] [place] [address] [facility] Start: 09-07-2024 End: 09-07-2025 US.doppler Renal vessels - bilateral Vas renal artery duplex complete Vascular Ultrasound Routine Essential hypertension PAD (peripheral artery disease) ([facility]) Expected: 09/07/2024, Expires: 09/07/2025 [facility] Work Phone: Comment on above: Expected: 09/07/2024, Expires: Start: 09-07-2024 End: 09-07-2024 Patient encounter procedure 09/07/2024 8:15 AM EDT Office Visit [facility] [address] [place] [address] Rojas Valencia MD [address] [place] [address] [facility] Start: 08-05-2024 Patient referral [facility] Work Phone: Start: 07-24-2024 Adult BMI Screening Adult BMI Screening [facility] Start: 07-24-2024 Tobacco Screening Tobacco Screening [facility] Start: 07-12-2024 Influenza vaccination Influenza Vaccine [facility] Start: 03-12-2024 End: 03-05-2025 Basic metabolic 2000 panel - Serum or Plasma Basic Metabolic Panel Lab Routine Essential hypertension Chest pain, unspecified type Expected: 03/12/2024 (Approximate), Expires: 03/05/2025 [facility] Work Phone: Comment on above: Expected: 03/12/2024 (Approximate), Expi res: 03/05/2025 Start: 03-12-2024 End: 03-05-2025 CBC W Auto Differential panel - Blood CBC auto differential Lab Routine Essential hypertension Chest pain, unspecified type Expected: 03/12/2024, Expires: 03/05/2025 [facility] Comment on above: Expected: 03/12/2024, Expires: Start: 03-12-2024 End: 03-05-2025 Lipid 1996 panel - Serum or Plasma Lipid profile Lab Routine Essential hypertension Chest pain, unspecified type Expected: 03/12/2024, Expires: 03/05/2025 [facility] Comment on above: Expected: 03/12/2024, Expires: Start: 03-12-2024 End: 03-05-2025 NM Heart Perfusion W adenosine and W radionuclide IV Nuc stress Lexiscan/Exercise Cardiac Services Routine Essential hypertension Chest pain, unspecified type Expected: 03/12/2024, Expires: 03/05/2025 [facility] Comment on above: Expected: 03/12/2024, Expires: Start: 03-12-2024 End: 03-12-2024 Patient encounter procedure [facility] Start: 03-05-2024 End: 03-05-2024 Patient encounter procedure 03/05/2024 8:00 AM EDT Office Visit [facility] [address] [place] [address] Elisa Minor MD [address] [place] [address] [facility] Start: 01-09-2024 End: 01-09-2024 Patient encounter procedure 01/09/2024 9:00 AM EST Appointment [facility] - Cardiovascular [address] [place] [address] Shai Hendricks MD [address] [place] [address] [facility] Start: 12-04-2023 End: 12-04-2024 Echo complete W/O contrast Echo complete W/O contrast Echocardiography Routine Essential hypertension Mixed hyperlipidemia Expected: 12/04/2023, Expires: 12/04/2024 [facility] Work Phone: Comment on above: Expected: 12/04/2023, Expires: Start: 12-04-2023 End: 12-04-2023 Patient encounter procedure 12/04/2023 2:00 PM EST Office Visit [facility] [address] [place] [address] Shai Hendricks MD [address] [place] [address] [facility] Start: 07-12-2023 Influenza vaccination Influenza Vaccine [facility] Start: 2013 Administration of varicella zoster vaccine Zoster (Shingles) Vaccine (1 of 2) [facility] Start: 1982 DTaP,Tdap and Td Vaccines (1 - Tdap) DTaP,Tdap and Td Vaccines (1 - Tdap) [facility] Start: 1975 Depression Screening Depression Screening [facility] Patient referral [facility] Work Phone: End: 01-05-2026 Thyrotropin [Units/volume] in Serum or Plasma TSH Lab Routine Acquired hypothyroidism every 6 months for 2 Occurrences starting 01/05/2025 until 01/05/2026 [facility] Work Phone: Comment on above: every 6 months for 2 Occurrences startin g 01/05/2025 until 01/05/2026 End: 01-05-2026 Thyroxine (T4) free [Mass/volume] in Serum or Plasma T4, free Lab Routine Acquired hypothyroidism every 6 months for 2 Occurrences starting 01/05/2025 until 01/05/2026 [facility] Comment on above: every 6 months for 2 Occurrences startin g 01/05/2025 until 01/05/2026 End: 01-05-2026 Triiodothyronine (T3) Free [Mass/volume] in Serum or Plasma T3, free Lab Routine Acquired hypothyroidism every 6 months for 2 Occurrences starting 01/05/2025 until 01/05/2026 [facility] Comment on above: every 6 months for 2 Occurrences startin g 01/05/2025 until 01/05/2026 Payers Date Payer Category Payer Blue [employer] Blue Shield BCBS [id number] [address] [employer]aged [employer] - PPO ANTHEM [id number] 2022 Unknown 2022 Blue Cross Blue Shield [id number] 2019 Unknown [id number] 1965 Unknown [id number] 2.16.840.1.008554.3.579.2. 59 1963 Unknown [id number] 2.16840.1.357869.3.579.2. 593 1963 Unknown [id number] 2.16840.1.065129.3.579.2. 593 1963 Unknown [id number] 2.16.840.1.357981.3.579.2. 593 1963 Unknown [id number] 2.16.840.1.020202.3.579.2. 593 1963 Unknown [id number] 2.16.840.1.573159.3.579.2. 1259 1963 Unknown [id number] 2.16.840.1.944738.3.579.2. 1285 1963 Unknown [id number] 2.16.840.1.665477.3.579.2. 1285 1963 Unknown [id number] 2.16.840.1.967613.3.579.2. 1285 1963 Unknown [id number] 2.16.840.1.489152.3.579.2. 1285 1963 Unknown [id number] 2.16.840.1.359764.3.579.2. 1285 1963 Unknown [id number] 2.16.840.1.543334.3.579.2. 1285 1963 Unknown [id number] 2.16.840.1.861839.3.579.2. 1285 1963 Unknown [id number] 2.16.840.1.902083.3.579.2. 1285 1963 Unknown [id number] 2.16.840.1.781106.3.579.2. 1285 1963 Unknown [id number] 2.16.840.1.169950.3.579.2. 1285 1963 Unknown [id number] 2.16.840.1.496100.3.579.2. 1285 1963 Unknown [id number] 2.16.840.1.532350.3.579.2. 1285 1963 Unknown [id number] 2.16.840.1.745063.3.579.2. 1286 1963 Unknown [id number] 2.16.840.1.824436.3.579.2. 1286 Self-pay Self Pay [id number] Social History Date Type Detail Facility Unknown if ever smoked [employer] Other Start: 11-22-2020 End: 11-23-2023 Sex Assigned At [facility] Start: 11-28-2023 End: 03-05-2024 Tobacco smoking status MDIS Ex-smoker (finding) [facility] Start: 1965 Sex Assigned At Female F [facility] History of tobacco use Current smoker [facility] History of tobacco use Cigarette Smoker [facility] Start: 11-22-2020 End: 11-26-2023 Cigarettes smoked current (pack per day) - Reported 0.5 [facility] Start: 11-26-2023 End: 03-05-2024 Tobacco use and exposure Smokeless tobacco non-user [facility] Start: 11-26-2023 Alcoholic beverage intake Ex-drinker (finding) [facility] How often to you hav e a drink containing alcohol? Monthly or less [facility] How many standard drinks containing alcohol do you have on a typical day? 1 or 2 [facility] How often do you hav e 6 or more drinks on 1 occasion? Never [facility] Start: 11-23-2023 Alcohol Comment caffeine intak e: 1-2 cups per day [facility] Start: 1965 Sex assigned at Not on file P [facility] Start: 12-04-2023 End: 01-05-2025 Alcoholic beverage intake Current drinker of alcohol (finding) [facility] Frequency of Alcohol Consumption Monthly or less [facility] Start: 11-22-2020 Alcohol Comment rarely [facility] Start: 06-16-2015 End: 01-19-2025 Sex Female (finding) [facility] Clinical Notes 06-07-2023 to 01-06-2025 Telephone Encounter - Kenzie Gregg RN - 01/06/2025 9:28 AM ESTTelephone Encounter - Kenzie Gregg RN - 01/06/2025 9:28 AM Sp Gay MD - 01/05/2025 12:30 PM EST Note Date & Type Note Facility 01-06-2025 Miscellaneous Notes Formattin g of this note might be different from the original. Received p/c from pt. C/O having BP spike in the evening. 150's/90's. Med list reviewed. Pt hasn't been taking Valsartan . Instructed to restart in PM w/ evening Coreg. Instructed to return call if BP cont.to be elevated documented in this encounter [facility] 01-06-2025 Telephone encount er Note Received p/c from pt. C/O having BP spike in the evening. 150's/90's. Med list reviewed. Pt hasn't been taking Valsartan . Instructed to restart in PM w/ evening Coreg. Instructed to return call if BP cont.to be elevated [facility] 01-05-2025 Note Ultrasound Examinati on of the Neck with Description of Thyroid Nodules: Procedure: US SOFT TISS HEAD NECK Reason for Exam: nodular goiter Comparison: November 2023 Technique: Real time sonography of the thyroid gland performed Right lobe: Measuring 3.63 x 1.10 x 2.52 cm Left lobe: Measuring 3.75 x 1.24 x 1.99 cm Thyroid Parenchyma: heterogeneous and hypervascular Nodule #1: Location: right thyroid nodule Size: 2.18 x 1.16 x 1.81 cm Components: complex solid cystic Borders: regular Vascularity: hypervascular Calcifications: none Nodule #2: Location: left thyroid nodule Size: 1.14 x 0.49 x 0.97 cm Components: hypoechoic Borders: regular Vascularity: hypervascular Calcifications: none ASSESSMENT AND PLAN: Multinodular goiter with stable size of the nodules. Recommendations: We recommend a repeat ultrasound in 1 year to monitor the stability of the nodule. If there is any significant change in the size of the nodule, i.e. a 20% or larger increase in volume or an increase of 2 mm or more in two dimensions, we recommend repeat biopsy of the nodule. This note is dictated with the use of M*Modal.Please note that this dictation was completed with computer voice recognition software. Quite often unanticipated grammatical, syntax, homophones, and other interpretive errors are inadvertently transcribed by the computer software. Please disregard these errors. Please excuse any errors that have escaped final proofreading. [employer] 01-05-2025 History of Presen t illness Narrative Reason for Visit: Marilia Bryant is a 59 y.o. female who is being seen today for the follow-up of her nodular goiter and thyroid dysfunction. History of Present Illness: Was noted to have enlarged thyroid on routine physical exam in 2020. 11/2020 - ultrasound showed 1.8 cm right thyroid nodule and 1.2 cm left thyroid nodule - s/p FNA with benign pathology. Repeat u/s in 2021 showed 1.3 cm left thyroid nodule and 2 cm right thyroid nodule. Repeat neck ultrasound from November 2022 demonstrated stable size of the thyroid nodules. Neck u/s from 11/2023 showed 1.3 cm left thyroid nodule and 2.2 cm right thyroid nodule. Denies noticing lumps in her neck. Denies any compressive manifestations. Denies any history of neck radiation. Denies any family medical history of thyroid cancer or parathyroid or MEN syndromes Reports fatigue, HTN. Taking levothyroxine 50 mcg daily since age 27. Family history of thyroid disease: Yes; mom, sister, Mgm, brother have thyroid dysfunction. Interim History: Taking armour thyroid 30 mg daily. Feeling better on this dose. Past Medical History: Diagnosis Date Arthritis Hypertension Hypothyroidism Right thyroid nodule 11/2020 Statin intolerance Past Surgical History: Procedure Laterality Date ANKLE SURGERY SECTION CHOLECYSTECTOMY COLONOSCOPY N/A 07/20/2019 Performed by Aris Tang DO at [facility] EGD N/A 07/20/2019 Performed by Aris Tang DO at [facility] EXPLORATORY LAPAROTOMY x2 HYSTERECTOMY LAPAROSCOPIC APPENDECTOMY N/A 07/28/2019 Performed by Aris Tang DO at [facility] OTHER SURGICAL HISTORY several glands removed US GUIDED BIOPSY THYROID FINE NEEDLE Right 11/2020 [facility] Current Outpatient Medications: amLODIPine (NORVASC) 10 mg tablet, Take 1 tablet (10 mg total) by mouth in the morning. (Patient taking differently: Take 0.5 tablets (5 mg total) by mouth in the morning.), Disp: 90 tablet, Rfl: 3 ascorbic acid (VITAMIN C ORAL), Take by mouth daily., Disp: , Rfl: carvediloL (COREG) 25 mg tablet, Take 2 tablets (50 mg total) by mouth in the morning and 2 tablets (50 mg total) in the evening. Take with meals., Disp: 120 tablet, Rfl: 3 cholecalciferol, vitamin D3, (VITAMIN D3 ORAL), Take by mouth daily., Disp: , Rfl: hyoscyamine (ANASPAZ,LEVSIN) 0.125 mg tablet, Take 1 tablet (0.125 mg total) by mouth every 4 (four) hours as needed for cramping., Disp: , Rfl: loperamide (IMODIUM A-D) 2 mg tablet, Take 1 tablet (2 mg total) by mouth 4 (four) times a day as needed for diarrhea., Disp: , Rfl: melatonin (CIRCADIN) 5 mg tablet, Take 2 tablets (10 mg total) by mouth nightly., Disp: , Rfl: MULTIVITAMIN ORAL, Take by mouth daily., Disp: , Rfl: rosuvastatin (CRESTOR) 20 mg tablet, Take 1 tablet (20 mg total) by mouth in the morning. Pt takes Saturday, , and fridays ., Disp: , Rfl: thyroid, pork, (ARMOUR THYROID) 30 mg tablet, Take 1 tablet (30 mg total) by mouth in the morning., Disp: 30 tablet, Rfl: 4 traZODone (DESYREL) 50 mg tablet, Take 1 tablet (50 mg total) by mouth nightly., Disp: , Rfl: vitamin E acetate (VITAMIN E ORAL), Take by mouth daily., Disp: , Rfl: ALPRAZolam (XANAX) 0.25 mg tablet, Take 1 tablet (0.25 mg total) by mouth nightly as needed for anxiety or sleep. (Patient not taking: Reported on 01/05/2025), Disp: , Rfl: diclofenac (VOLTAREN) 75 mg EC tablet, Take 1 tablet (75 mg total) by mouth nightly. (Patient not taking: Reported on 01/05/2025), Disp: , Rfl: valsartan (DIOVAN) 160 mg tablet, Take 1 tablet (160 mg total) by mouth in the morning. (Patient not taking: Reported on 01/05/2025), Disp: 90 tablet, Rfl: 3 Allergies Allergen Reactions Nifedipine Dizziness nausea Bee Venom Protein (Honey Bee) Carries epi pen Family History Problem Relation Age of Onset Heart disease Mother Thyroid cancer Mother Heart disease Father Cancer Father Lung cancer Brother Cancer Brother smoker Cancer Maternal Grandfather stomach Social History: reports that she has quit smoking. Her smoking use included cigarettes. She has never used smokeless tobacco. She reports current alcohol use. She reports that she does not use drugs. Review of Systems: 12 systems were reviewed and were negative except for what has been mentioned above. Physical Exam: Vitals: 01/05/25 1223 BP: (!) 162/93 Pulse: 71 Weight: 62.1 kg (137 lb) General appearance: Awake alert and oriented in no acute distress. HEENT: normocephalic, atraumatic. SKIN: no acanthosis nigricans noted on neck. HAIR: Normal facial hair growth, no hirsuitism. EYES: no exopthalmos present, extraocular movement intact (EOMI), no lid retraction noted, no chemosis. MOUTH/JAW: No lip enlargement, No widening of teeth spaces. NECK: Nodular goiter. CHEST: No nasal flaring, no cough. ABDOMEN: No injection site lipodystrophy. ACROMEGALIC EXTREMITY FEATURES are not present. EXTREMITIES: no edema. NEUROLOGIC: alert and oriented. 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 1. Acquired hypothyroidism (Primary) - Chela's thyroiditis is an autoimmune condition which increases the risk of hypothyroidism over time. It is more common in women but can be seen in either gender and children of different ages. When TSH is normal we suggest at least annual TSH/FT4 labs to monitor for the onset of hypothyroidism. When TSH is elevated but below 10, the patient has the option to start levothyroxine if they have positive antibodies and suggestive symptoms. If TSH is >10, we recommend treatment. Levothryoxine is the standard medication and is very safe and effective. [place] thyroid is natural, dessicated porcine thyroid and is less preferred as pigs may have higher T3:T4 ratio than humans. [id number], this might be a suitable option for some families. - clinically and biochemically euthyroid - thyroid, pork, (ARMOUR THYROID) 30 mg tablet; Take 1 tablet (30 mg total) by mouth in the morning. Dispense: 30 tablet; Refill: 4 - Thyroid medication instructions: -Take the thyroid medication in the morning on an empty stomach (preferred method) -Do not take the thyroid medication at the same time as iron or soy containing products - Wait 2 hours before taking other meds like iron, calcium and mvt -If you forget one pill, take later in the day; or take 2 pills the next day to make up the missed dose 2. Nontoxic nodular goiter - neck ultrasound demonstrated multinodular goiter with stable size of the nodules - repeat ultrasound in 1 year or sooner if clinically indicated 3. High blood pressure today in the clinic. Patient had a recent syncopal event and blood pressure medications were discontinued by Cardiology. Being evaluated by Cardiology at this time Return to clinic: 1 year with u/s Hailey Gay MD [facility] [address] [address] Dept: [phone] documented in this encounter [facility] 10-13-2024 Telephone encount er Note prn [facility] 10-13-2024 Miscellaneous Notes Formattin g of this note might be different from the original. prn Called patient to schedule her 1 year follow up with US. She stated she sees an dry house attendant [place] of [place] now and she wants to keep following up with them and don't want to schedule with us anymore. documented in this encounter [facility] 10-13-2024 Telephone encount er Note Called patient to schedule her 1 year follow up with US. She stated she sees an dry house attendant [place] of [place] now and she wants to keep following up with them and don't want to schedule with us anymore. [facility] 09-10-2024 History of Presen t illness Narrative Reason for Visit: Marilia Bryant is a 59 y.o. female who is being seen today in consultation at the request of INES MCKEON MD for her nodular goiter and thyroid dysfunction. History of Present Illness: Was noted to have enlarged thyroid on routine physical exam in 2020. 11/2020 - ultrasound showed 1.8 cm right thyroid nodule and 1.2 cm left thyroid nodule - s/p FNA with benign pathology. Repeat u/s in 2021 showed 1.3 cm left thyroid nodule and 2 cm right thyroid nodule. Repeat neck ultrasound from November 2022 demonstrated stable size of the thyroid nodules. Neck u/s from 11/2023 showed 1.3 cm left thyroid nodule and 2.2 cm right thyroid nodule. Denies noticing lumps in her neck. Denies any compressive manifestations. Denies any history of neck radiation. Denies any family medical history of thyroid cancer or parathyroid or MEN syndromes Reports fatigue, HTN. Taking levothyroxine 50 mcg daily since age 27. Family history of thyroid disease: Yes; mom, sister, Mgm, brother have thyroid dysfunction. Past Medical History: Diagnosis Date Arthritis Hypertension Hypothyroidism Right thyroid nodule 11/2020 Statin intolerance Past Surgical History: Procedure Laterality Date ANKLE SURGERY SECTION CHOLECYSTECTOMY COLONOSCOPY N/A 07/20/2019 Performed by Aris Tang DO at [facility] EGD N/A 07/20/2019 Performed by Aris Tang DO at [facility] EXPLORATORY LAPAROTOMY x2 HYSTERECTOMY LAPAROSCOPIC APPENDECTOMY N/A 07/28/2019 Performed by Aris Tang DO at [facility] OTHER SURGICAL HISTORY several glands removed US GUIDED BIOPSY THYROID FINE NEEDLE Right 11/2020 [facility] Current Outpatient Medications: ALPRAZolam (XANAX) 0.25 mg tablet, Take 1 tablet (0.25 mg total) by mouth nightly as needed for anxiety or sleep., Disp: , Rfl: amLODIPine (NORVASC) 10 mg tablet, Take 1 tablet (10 mg total) by mouth in the morning. (Patient taking differently: Take 0.5 tablets (5 mg total) by mouth in the morning.), Disp: 90 tablet, Rfl: 3 ascorbic acid (VITAMIN C ORAL), Take by mouth daily., Disp: , Rfl: carvediloL (COREG) 25 mg tablet, Take 2 tablets (50 mg total) by mouth in the morning and 2 tablets (50 mg total) in the evening. Take with meals., Disp: 120 tablet, Rfl: 3 cholecalciferol, vitamin D3, (VITAMIN D3 ORAL), Take by mouth daily., Disp: , Rfl: diclofenac (VOLTAREN) 75 mg EC tablet, Take 1 tablet (75 mg total) by mouth nightly., Disp: , Rfl: hyoscyamine (ANASPAZ,LEVSIN) 0.125 mg tablet, Take 1 tablet (0.125 mg total) by mouth every 4 (four) hours as needed for cramping., Disp: , Rfl: levothyroxine (SYNTHROID, LEVOTHROID) 50 MCG tablet, Take 1 tablet (50 mcg total) by mouth nightly., Disp: , Rfl: 11 loperamide (IMODIUM A-D) 2 mg tablet, Take 1 tablet (2 mg total) by mouth 4 (four) times a day as needed for diarrhea., Disp: , Rfl: melatonin (CIRCADIN) 5 mg tablet, Take 2 tablets (10 mg total) by mouth nightly., Disp: , Rfl: MULTIVITAMIN ORAL, Take by mouth daily., Disp: , Rfl: rosuvastatin (CRESTOR) 20 mg tablet, Take 1 tablet (20 mg total) by mouth in the morning. Pt takes Saturday, , and fridays ., Disp: , Rfl: spironolactone (ALDACTONE) 50 mg tablet, Take 1 tablet (50 mg total) by mouth in the morning., Disp: 30 tablet, Rfl: 11 traZODone (DESYREL) 50 mg tablet, Take 1 tablet (50 mg total) by mouth nightly., Disp: , Rfl: valsartan (DIOVAN) 160 mg tablet, Take 1 tablet (160 mg total) by mouth in the morning., Disp: 90 tablet, Rfl: 3 vitamin E acetate (VITAMIN E ORAL), Take by mouth daily., Disp: , Rfl: Allergies Allergen Reactions Nifedipine Dizziness nausea Bee Venom Protein (Honey Bee) Carries epi pen Family History Problem Relation Age of Onset Heart disease Mother Thyroid cancer Mother Heart disease Father Cancer Father Lung cancer Brother Cancer Brother smoker Cancer Maternal Grandfather stomach Social History: reports that she has quit smoking. Her smoking use included cigarettes. She has never used smokeless tobacco. She reports current alcohol use. She reports that she does not use drugs. Review of Systems: 12 systems were reviewed and were negative except for what has been mentioned above. Physical Exam: Vitals: 09/10/24 1245 BP: 132/82 Pulse: 69 Weight: 61.4 kg (135 lb 6.2 oz) General appearance: Awake alert and oriented in no acute distress. HEENT: normocephalic, atraumatic. SKIN: no acanthosis nigricans noted on neck. HAIR: Normal facial hair growth, no hirsuitism. EYES: no exopthalmos present, extraocular movement intact (EOMI), no lid retraction noted, no chemosis. MOUTH/JAW: No lip enlargement, No widening of teeth spaces. NECK: Nodular goiter. CHEST: No nasal flaring, no cough. ABDOMEN: No injection site lipodystrophy. ACROMEGALIC EXTREMITY FEATURES are not present. EXTREMITIES: no edema. NEUROLOGIC: alert and oriented. Labs: Latest Reference Range & Units 04/26/21 00:00 07/03/23 00:00 03/12/24 07:15 05/02/24 10:21 White Blood Cells 4.0 - 11.0 X10E9/L 7.3 RBC count 3.80 - 5.20 X10E12/L 4.17 Hemoglobin 11.7 - 15.5 g/dL 12.6 Hematocrit 35 - 47 % 37.9 MCV 80 - 100 fL 91 MCH 27 - 34 pg 30.3 MPV 7 - 12 fL 9.1 MCHC 32 - 36 g/dL 33.3 RDW 11.5 - 15.0 % 15.8 (H) Platelets 150 - 450 X10E9/L 361 % monocytes % 10.4 % neutrophils % 55.4 % Basophils % 0.9 % eosinophils % 2.7 % lymphocytes % 30.6 Basophils Absolute 0.0 - 0.2 X10E9/L 0.1 Eosinophils Absolute 0.0 - 0.4 X10E9/L 0.2 Lymphocytes Absolute 1.0 - 3.5 X10E9/L 2.2 Monocytes Absolute 0 - 0.9 X10E9/L 0.8 Neutrophils Absolute (A) 1.5 - 6.6 X10E9/L 4.0 Sodium 134 - 146 mmol/L 143 Potassium 3.5 - 5.0 mmol/L 4.1 Chloride 98 - 109 mmol/L 106 CO2 22 - 32 mmol/L 28 Glucose 65 - 99 mg/dL 84 Creatinine 0.40 - 1.00 mg/dL 0.65 BUN 5 - 23 mg/dL 20 Calcium 8.5 - 10.5 mg/dL 9.4 Anion gap 5 - 15 mmol/L 9 eGFR (CKD-EPI)non-race dependent >59 ml/min/1.73sq.m >90 Cholesterol 150 - 200 mg/dL 154 Cholesterol:HDL Ratio 1.0 - 5.0 3.4 HDL >39 mg/dL 45 LDL (calc) <130 mg/dL 87 Triglycerides 27 - 150 mg/dL 112 VLDL 0 - 30 mg/dL 22 External Cholesterol 124 175 (E) External Cholesterol:Hdl 2.4 2.8 (E) External Hdl Cholesterol 52 62 (E) External Ldl (Calc) 62 93.0 (E) External Triglycerides 48 102 (E) External Very Low Lipoprotein 9.6 20.4 (E) Stress peak HR bpm 136 Assessment/Plan: Marilia Bryant presents today for 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 1. Chela's thyroiditis (Primary) - Chela's thyroiditis is an autoimmune condition which increases the risk of hypothyroidism over time. It is more common in women but can be seen in either gender and children of different ages. When TSH is normal we suggest at least annual TSH/FT4 labs to monitor for the onset of hypothyroidism. When TSH is elevated but below 10, the patient has the option to start levothyroxine if they have positive antibodies and suggestive symptoms. If TSH is >10, we recommend treatment. Levothryoxine is the standard medication and is very safe and effective. [place] thyroid is natural, dessicated porcine thyroid and is less preferred as pigs may have higher T3:T4 ratio than humans. [id number], this might be a suitable option for some families. - Thyroid profile includes TSH FT4; Future - T3, free; Future - Thyroid stimulating immunoglobulin; Future - Thyroid antibodies includes TPO and TGAB; Future - thyroid, pork, (ARMOUR THYROID) 30 mg tablet; Take 1 tablet (30 mg total) by mouth in the morning. Dispense: 30 tablet; Refill: 4 - Thyroid medication instructions: -Take the thyroid medication in the morning on an empty stomach (preferred method) -Do not take the thyroid medication at the same time as iron or soy containing products - Wait 2 hours before taking other meds like iron, calcium and mvt -If you forget one pill, take later in the day; or take 2 pills the next day to make up the missed dose 2. Nontoxic nodular goiter - THYROID NODULE GUIDELINES: A thyroid nodule is a discrete lesion within the thyroid gland that is radiologically distinct from the surrounding thyroid parenchyma. Some palpable lesions may not correspond to distinct radiologic abnormalities. Such abnormalities do not meet the strict definition for thyroid nodules. Nonpalpable nodules detected on US or other anatomic imaging studies are termed incidentally discovered nodules or incidentalomas. Nonpalpable nodules have the same risk of malignancy as do sonographically confirmed palpable nodules of the same size. Generally, only nodules >1 cm should be evaluated, since they have a greater potential to be clinically significant cancers. Occasionally, there may be nodules <1 cm that require further evaluation because of clinical symptoms or associated lymphadenopathy. In very rare cases, some nodules <1 cm lack these sonographic and clinical warning signs yet may nonetheless cause future morbidity and mortality. In general, the guiding clinical strategy acknowledges that most thyroid nodules are low risk, and many thyroid cancers pose minimal risk to human health and can be effectively treated. Return to clinic: 4 months Hailey Gay MD [facility] [address] [facility] [address] [place] [address] Dept: [phone] documented in this encounter [facility] [employer] [facility] 09-07-2024 History of Presen t illness Narrative Marilia Tomasmanuel Bryant Date of visit: 09/07/2024 Date of [...] heartburn after meals, improves with taking Prilosec [id number] and Pepcid. Has a GI doctor [facility] has not seen for awhile. No tobacco [...] 07/20/2019 Performed by Aris Tang DO at [facility] EGD N/A 07/20/2019 Performed by Aris Tang DO at [facility] EXPLORATORY LAPAROTOMY x2 HYSTERECTOMY LAPAROSCOPIC APPENDECTOMY N/A 07/28/2019 Performed by Aris Tang DO at [facility] OTHER SURGICAL HISTORY several glands removed US [...] hyperlipidemia type 6. PAD (peripheral artery disease) ([facility]) - Vas renal artery duplex complete; Future [...] MCKEON MD Referring Physician: Ines Mckeon MD [address] [place] [address] documented in this encounter [facility] 09-04-2024 Miscellaneous Notes Formattin g of this note might be different from the original. Left message for patient to remind them to bring their most current medication list with them to their appointment. documented in this encounter [facility] 09-04-2024 Telephone encount er Note Left message for patient to remind them to bring their most current medication list with them to their appointment. [facility] 03-05-2024 History of Presen t illness Narrative Marilia Tomas Manny Date of visit: 03/05/2024 Date of : 1965 Age: 58 y.o. [...] (VITAMIN D3 ORAL) Take by mouth daily. hyoscyamine (ANASPAZ,LEVSIN) 0.125 mg tablet Take 1 [...] mouth in the morning. 30 tablet 11 vitamin E acetate (VITAMIN E ORAL) Take by mouth daily. amLODIPine (NORVASC) 10 mg tablet Take 1 tablet (10 mg total) by mouth in the morning. 30 tablet 11 valsartan (DIOVAN) 160 mg tablet Take 1 tablet (160 mg total) by mouth in the morning. 90 tablet 3 No current facility-administered medications for this visit. Chief Complaint Patient presents with Follow-up 3 MONTH AND ECHO DONE Hypertension History of Present Illness Feeling ok. Sharp pains in chest seem to occur daily, lasts about 5 minutes at times. These are unrelated to exertion and appear randomly. No clear relation to stress. No associated SOB/diaphoresis. Sharp chest pains have been issue last few months. Occur at work more than anything. Does not check BP when this occurs. Does not get chest pain consistently while walking/exercising. SBP frequently 150s at home. Past Medical History: Diagnosis Date Arthritis Hypertension Hypothyroidism Right thyroid nodule 11/2020 Statin intolerance No data recorded No data recorded No data recorded Past Surgical History: Procedure Laterality Date ANKLE SURGERY SECTION CHOLECYSTECTOMY COLONOSCOPY N/A 07/20/2019 Performed by Aris Tang DO at [facility] EGD N/A 07/20/2019 Performed by Aris Tang DO at [facility] EXPLORATORY LAPAROTOMY x2 HYSTERECTOMY LAPAROSCOPIC APPENDECTOMY N/A 07/28/2019 Performed by Aris Tang DO at [facility] OTHER SURGICAL HISTORY several glands removed US [...] on file Food Insecurity: No Food Insecurity (03/05/2024) Hunger Screening Food Insecurity - Worry: Never True Food Insecurity - Inability: Never True Transportation Needs: Not on file Physical Activity: Not on file Stress: Not on file Social Connections: Not on file Interpersonal Safety: Not on file Housing Instability: Not on file Review of Systems Review of Systems Constitutional: Positive for malaise/fatigue. HENT: Negative. Eyes: Negative. Respiratory: Negative. Hematologic/Lymphatic: Negative. Skin: Negative. Musculoskeletal: Negative. Gastrointestinal: Negative. Neurological: Negative. Psychiatric/Behavioral: Positive for depression. The patient is nervous/anxious. Allergic/Immunologic: Negative. CARDIOVASCULAR: Please review HPI. Physical Examination General appearance: Alert, oriented and cooperative. In no acute distress. Skin: Warm and dry to touch. Head: Normocephalic, without obvious abnormality, atraumatic. Ears, Nose, Mouth, Throat: Throat clear without erythema or exudate. Dentition intact. Eyes: Conjunctivae unremarkable, EOM intact. Neck: Neck supple, trachea midline. Respiratory: Clear to auscultation bilaterally, no use of accessory muscles. Cardiovascular: RRR with normal S1 and S2 with no murmurs. Gastrointestinal: Soft, non-tender. Bowel sounds normal. Musculoskeletal: No peripheral edema. Neurologic: Oriented to time, person and place, affect appropriate. No focal/major motor defects noted. Psychiatric: Appropriate mood, memory and judgement. VITAL SIGNS: BP (!) 160/100 (BP Site: Left Arm, BP Postition: Sitting) Pulse 72 Ht 160 cm (5' 3 ) Wt 62.1 kg (137 lb) SpO2 100% BMI 24.27 kg/m Orders Placed or Reconciled This Encounter Medications amLODIPine (NORVASC) 10 mg tablet Sig: Take 1 tablet (10 mg total) by mouth in the morning. Dispense: 30 tablet Refill: 11 valsartan (DIOVAN) 160 mg tablet Sig: Take 1 tablet (160 mg total) by mouth in the morning. Dispense: 90 tablet Refill: 3 Medications Discontinued During This Encounter Medication Reason amLODIPine (NORVASC) 5 mg tablet IMPRESSIONS/PLAN 1. Essential hypertension - Basic Metabolic Panel; Future - Nuc stress Lexiscan/Exercise; Future - POCT EKG - Lipid profile; Future - CBC auto differential; Future 2. Chest pain, unspecified type - Basic Metabolic Panel; Future - Nuc stress Lexiscan/Exercise; Future - POCT EKG - Lipid profile; Future - CBC auto differential; Future 1. HTN likely essential though never tested for hyperaldo and K was low previously, some white coat component but BP persistently high at home 2. Family history of CABG in mom 3. Atypical chest pain last few months, daily episodes 4. Hyperlipidemia LDL 176 off statin at one point 5. History of myalgias on statin EKG today NSR Increase Norvasc to 10 mg po daily Add ARB BMP in week Recommend noninvasive ischemic evaluation, would do exercise-Prema SPECT Recheck lipids TODAYS ORDERS Orders Placed This Encounter Procedures Basic Metabolic Panel Lipid profile CBC auto differential Nuc stress Lexiscan/Exercise POCT EKG FOLLOW UP Return in about 6 months (around 09/04/2024). PCP: INES MCKEON MD Referring Physician: Ines Mckeon MD [address] [place] [address] [facility] 03-04-2024 Miscellaneous Notes Formattin g of this note might be different from the original. Called patient to remind them to bring their most current copy of their medication list with them to their appt. Patient verbalizes understanding. documented [facility] this [facility]24 Telephone encount er Note Called patient to remind them to bring their most current copy of their medication list with them to their appt. Patient verbalizes understanding. [facility] 12-04-2023 History of Presen t illness [...] 07/20/2019 Performed by Aris Tang DO at [facility] EGD N/A 07/20/2019 Performed by Aris Tang DO at [facility] EXPLORATORY LAPAROTOMY x2 HYSTERECTOMY LAPAROSCOPIC APPENDECTOMY N/A 07/28/2019 Performed by Aris Tang DO at [facility] OTHER SURGICAL HISTORY several glands removed US [...] MCKEON MD Referring Physician: Ines Mckeon MD [address] [place] [address] A total of 10 minutes were spent with the patient, of which more than 50% consisted of counseling. Scribed for and in the presence of Shai Hendricks MD by Estevan Proctor. Estevan Proctor 12/04/2023 2:14 PM documented in this encounter [employer] 12-03-2023 Miscellaneous Notes Formattin g of this note might be different from the original. Called patient to remind them to bring their most current copy of their medication list with them to their appt. Patient verbalizes understanding. documented in this encounter [employer] 12-03-2023 Telephone encount er Note Called patient to remind them to bring their most current copy of their medication list with them to their appt. Patient verbalizes understanding. [facility] Evaluation note Encounter Date Diagnosis Assessment Notes Nov, Essential (primary) hypertension (ICD-10 - I10) BP improved. Completed FMLA paperwork. Keep cardiology appt next week. Nov, Acute anxiety (ICD-10 - F41.9) Requests prn med to help her settle down and/or sleep. Understands that xanax could make her too sedated. [employer] Other 01-08-2024 Miscellaneous Notes* Telephone Encounter - [...] to pt. Appt given [facility] Note* Telephone Encounter - [...] changes. Will message SER- Last seen 07/24/2023 [facility]2024 Telephone encounter Note* Telephone Encounter - MELISSA Dutton - 11/18/2023 1:51 PM EST Increase Coreg to 50 mg b.i.d.. She should be seen by general cardiology next available [facility]01-08-2024 Telephone encounter Note* Telephone Encounter - Kenzie Gregg RN - 11/18/2023 1:51 PM EST Response called to pt. Appt given [facility]08-17-2023 Evaluation note* Encounter Date Diagnosis Assessment Notes Treatment Notes Treatment Clinical Notes Jun, Neck pain on left side (ICD-10 - M54.2) Discussed potential imaging US v. CT; ENT referral and further workup. Pt declines that at this time. Requests prn pain medication for neck and L upper back pain. Will call or go to ER if problem continues or worsens and followup prn. [facility] Other 08-14-2023 Evaluation note* Encounter Date Diagnosis [...] Castillo, but requests full lab for thyroid [employer] Other 07-28-2023 Evaluation note* Encounter Date Diagnosis [...] and get referral to GI at the [facility]. Direceted on use of hycosamine. Follow-up with Dr. Mckeon. [facility] [employer] Other Evaluation noteNo [employer] Other Evaluation note* Diagnosis Onset Date Resolution Status Multinodular goiter acute Thyroid function test abnormal acute [facility] Work Phone: Evaluation note* Diagnosis Onset Date Resolution Status Insomnia acute Multinodular goiter acute Thyroid function test abnormal acute [facility] Work Phone: Evaluation note* Diagnosis Essential hypertension- Primary Unspecified essential hypertension Chest pain, unspecified type documented [facility]* Diagnosis Essential hypertension- Primary Unspecified essential hypertension Mixed hyperlipidemia documented in [facility]* Diagnosis Essential hypertension Unspecified essential hypertension documented in this encounter [facility]* Diagnosis Hx of chest pain- Primary Essential hypertension Unspecified essential hypertension Mild aortic regurgitation Mild mitral regurgitation Hyperlipidemia, unspecified hyperlipidemia type PAD (peripheral artery disease) ([facility]) Unspecified peripheral vascular disease documented in this encounter [facility]* Diagnosis Chela's thyroiditis- Primary Chronic lymphocytic thyroiditis Nontoxic nodular goiter Unspecified nontoxic nodular goiter documented in this encounter [facility] [employer] SystemEvaluation note* Diagnosis Acquired hypothyroidism- Primary Unspecified hypothyroidism Nontoxic nodular goiter Unspecified nontoxic nodular goiter documented in this encounter [facility] noteNo assessment information available [facility] Work Phone: [facility] general Narrative - Reported* Type Description Date Medical History Problem Title : Prob lems Reconciled, Problem Status : Active,, Surgical History GALLBLADDER Surgical History LAPROSCOPIES Surgical History HYSTERECTOMY Surgical History X 3 Surgical History REMOVAL SALAVARY GLAND LEFT NEC K MULTIPLE TIMES Hospitalization History SURGIES Hospitalization History IRRITABLE BOWEL [employer] Other [facility] general Narrative - Reported* Type Description Date [...] Hospitalization History SURGIES Hospitalization History IRRITABLE BOWEL [employer] Other History general Narrative - Reported* Type Description Date Surgical History GALLBLADDER Surgical History LAPROSCOPIES Surgical History HYSTERECTOMY Surgical History X 3 Surgical History REMOVAL SALAVARY GLAND LEFT NEC K MULTIPLE TIMES Hospitalization History SURGIES Hospitalization History IRRITABLE BOWEL [employer] Other Hospital Discharge instructionsAmbulatory Orders* Referral to Endocrinology Time Frame: 08/05/24, Location: None [facility] Work Phone: InstructionsNot on filedocumented in this encounter [facility] filedocumented in this encounter [facility] on filedocumented in this encounter [facility]Not on filedocumented in this encounter [facility]Not on filedocumented in this encounter [facility]ructionsNot on filedocumented in this encounter [facility]* Attachments The following attachments cannot be sent through Care Everywhere. * Thyroid, Desiccated, ADULT (Danish) documented in this encounterProMedica Health SystemInstructionsNot on file documented in this encounterProSouthern [facility] CenterMID[facility] Summary Purpose Family History Relationship Condition Age at Onset Recorded Date/T jessica father Malignant neoplasm Unknown Advance Directives Advance Directive Response Recorded Date/ Time Advance Directives No July 12:45pm Advance Directive Response Recorded Date/ Time Advance Directives No July 11:45am Chief Complaint and Reason for Visit Chief Complaint med refills Reason for Visit Multinodular goiter Thyroid function test abnormal Chief Complaint med refills CC Adult Risk Stratification ER f/u:L Ankle Sprain Reason for Visit Insomnia Multinodular goiter Thyroid function test abnormal Chief Complaint Admit Date 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, 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 January 19, 2025 10:29am Reason for Referral Specialty Diagnoses / Procedures Referred By Debra henry Referred To Contact Diagnoses Essential hypertension Mixed hyperlipidemia Procedures Echo complete W/O contrast Shai Hendricks MD [address] [place] [address] [facility] [address] [place] [address] Phone: [phone] Referral ID Status Reason Start Date Expiration Date V isits Requested Visits Authorized [id number] Pending Review 12/04/2023 12/03/2024 1 1 Specialty Diagnoses / Procedures Referred By Contac t Referred To Contact Diagnoses Essential hypertension Chest pain, unspecified type Procedures Nuc stress Lexiscan/Exercise Elisa Minor MD [address] [place] [address] [facility] [address] [place] [address] Phone: [phone] Referral ID Status Reason Start Date Expiration Date V isits Requested Visits Authorized [id number] Pending Review 03/05/2024 03/05/2025 5 5 Additional Source Comments INFORMATION SOURCE (unrecogn ized section and content) DATE CREATED AUTHOR 02/14/2023 [facility] DATE CREATED AUTHOR AUTHOR'S ORGANIZ ATION 11/27/2023 [facility] EPIC DATE CREATED AUTHOR AUTHOR'S ORGANIZ ATION 09/12/2024 [facility] DATE CREATED AUTHOR AUTHOR'S ORGANIZ ATION 12/13/2024 [facility] DATE CREATED AUTHOR AUTHOR'S ORGANIZ ATION 01/10/2025 [facility] REASON FOR VISIT (unrecogniz ed section and content) Reason Comments Follow-up 3 MONTH AND ECHO DON E Hypertension Reason Onset Date Comments Hypertension 11/18/2023 Reason Comments Follow-up EST PT BP ISSUES MED CHANGES SCHED W/PT Reason Onset Date Comments Med Refill 03/31/2024 Reason Comments Follow-up 6 MONTHS AND STRESS Hypertension Reason Comments New Patient Care Teams (unrecognized sec tion and content) Team Status: Active Member Role Status Dates Oliverio Maldonado MD Primary Care Provider Active Team Status: Inactive Member Role Status Dates Oliverio Maldonado MD Primary Care Provider Active Start: August 05, 2024 End: August 05, 2024 Ines Mckeon MD Attending Provider Active St art: August 05, 2024 End: August 05, 2024 Team Status: Active Member Role Status Dates Oliverio Maldonado MD Primary Care Provider Active Start: September 11, 2024 Ines Mckeon MD Attending Provider Active St art: September 11, 2024 Team Status: Inactive Member Role Status Dates Oliverio Maldonado MD Primary Care Provider Active Start: September 16, 2024 End: September 16, 2024 Ines Mckeon MD Attending Provider Active St art: September 16, 2024 End: September 16, 2024 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 Relationship Specialty Start Date End Date Ines Mckeon MD [address] [place] [phone] PCP - General Family Medicine 07/29/24 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 Relationship Specialty Start Date End Date Ines Mckeon MD [address] [place] [phone] PCP - General Family Medicine 12/08/19 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 Relationship Specialty Start Date End Date Ines Mckeon MD [address] [place] [phone] PCP - General Family Medicine 12/08/19 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 Relationship Specialty Start Date End Date Ines Mckeon MD [address] [place] [phone] PCP - General Family Medicine 12/08/19 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 Relationship Specialty Start Date End Date Ines Mckeon MD [address] [place] [id number] PCP - General Family Medicine 12/08/19 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 Relationship Specialty Start Date End Date Ines Mckeon MD [address] [place] [phone] PCP - General Family Medicine 12/08/19 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 Relationship Specialty Start Date End Date Ines Mckeon MD [address] [place] [address] [place] [phone] PCP - General Family Medicine 12/08/19 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 Relationship Specialty Start Date End Date Ines Mckeon MD [address] [place] [phone] PCP - General Family Medicine 12/08/19 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 Relationship Specialty Start Date End Date Ines Mckeon MD [address] [place] [phone] PCP - General Family Medicine 12/08/19 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 Relationship Specialty Start Date End Date Ines Mckeon MD [address] [place] [address] [phone] PCP - General Family Medicine 12/08/19 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 [facility]. provides no warranty or guarantee of the accuracy or completeness of information in this document.
== END 2025-01-26 07:02 | disposition home or self-care (01) ==
LOC: US 07:01
PROVIDERS: PCP Family Medicine; Visit Provider Family Medicine
DX: N28.1 Cyst of kidney, acquired (principal); N20.0 Calculus of kidney
CPT/HCPCS: 76775